=== PATIENT | female | born 1935 | race Caucasian/White ===

== ENCOUNTER 2017-06-16 12:58 | Inpatient (IN) | payer OTHER, MEDICARE ==
[~2017-06-16] VITALS: Ht 167.6 cm; Wt 62.1 kg
[~2017-06-16 12:58] MED LIST: ASPIRIN81 M1 PO; ATORVASTATIN CA10 MG PO; CALCIUM; CALCIUM + D 6001 TAB PO; CELEBREX200 M1 PO; ELIQUIS2.5 M1 PO; FLOVENT HFA10.6 GM PO; GLIPIZIDE ER5 MG PO; HYGROTON 25MG T25 MG PO; JANUMET 1000 MG1 TAB PO; K-DUR 20MEQ TA20 MEQ PO; LOSARTAN POTASS25 MG PO; METHIMAZOLE5 M1 PO; NORCO 5-325 TA1 EACH PO; OMEPRAZOLE D/R20 MG PO; SEA-OMEGA 50 C1 EACH PO; VICODIN5-300 PO; VITAB121000 PO; VITAMIN D1000 IU PO
--- NOTE | 2017-06-16 13:17 | CT SCAN REPORT ---
EXAMINATION: CT HEAD WITHOUT CONTRAST CLINICAL INFORMATION: 81-year-old woman with facial droop. COMPARISON: 10/17/[address] TECHNIQUE: Contiguous axial imaging was performed from the skull base to vertex without intravenous administration of contrast. DLP: 621 mGy-cm FINDINGS: No intracranial mass, hemorrhage, midline shift, or extra-axial collection is appreciated. Moderate chronic microvascular ischemic changes are seen throughout the supratentorial white matter. The ventricles and sulcal spaces are diffusely prominent due to chronic volume loss, although appear stable in overall size and contour. The paranasal sinuses and mastoid air cells are well aerated. IMPRESSION: No acute intracranial pathology.
--- NOTE | 2017-06-16 13:26 | ED AMS/SEIZURE/WEAK/DIZZY ---
See Addendum History of Present Illness General Chief Complaint: Neuro Symptoms/ Deficit Stated Complaint: BIBA ?CVA Source: patient, old records, EMS Exam Limitations: no limitations Vital Signs & Intake/Output Vital Signs & Intake/Output Vital Signs Date Time Temp Pulse Resp B/P B/P Pulse O2 O2 Flow FiO2 Mean Ox Delivery Rate 06/16 1405 74 18 183/103 98 Room Air 06/16 1335 98.4 73 18 180/80 97 Room Air 06/16 1331 Room Air 06/16 1320 99.2 84 16 201/95 97 Room Air Allergies Coded Allergies: cephalexin (From KEFLEX) (HIVES 09/27/15) Reconcile Medications Apixaban (Eliquis) 2.5 MG TABLET 1 TAB PO BID ANTICOAGULATION Atorvastatin Calcium (Lipitor) 10 MG TAB 1 TAB PO DAILY CHOLESTEROL (Reported ) [CALCIUM] 120 MG PROPHO (Reported) Celecoxib (Celebrex) 200 MG CAPSULE 1 CAP PO DAILY INFLAMMATION Cyanocobalamin (Vitamin B-12) 1,000 MCG TAB 1 TAB PO DAILY SUPPLEMENT ( Reported) Fluticasone Propionate (Flovent Hfa) 44 MCG AER.W.ADAP 1 PUFF PO DAILY COPD ( Reported) Hydrocodone/Acetaminophen ([place] 5-325 Tablet) 5 MG-325 MG TABLET 1-2 TAB PO Q4-6H PRN PAIN Losartan Potassium 25 MG TAB 1 TAB PO DAILY BP (Reported) Metformin Hydrochloride/Wilma (Janumet 1000 MG-50 MG) 1 TAB TAB 1 TAB PO BID DIABETES (Reported) Methimazole 5 MG TAB 1 TAB PO AD THYROID (Reported) Omeprazole 20 MG ECC 1 CAP PO DAILY GI (Reported) Core Measure Meds Pre-[facility]ospital [facility] Triage Nurses Notes Reviewed? yes Onset: Just prior to arrival Duration: hour(s):, better, constant, continues in ED Timing: recent history Injury Environment: home Severity: moderate No Modifying Factors: none LMP (ages 10-50): post menopausal : No Patient currently breastfeeds: No HPI: 11 to 11:30 AM patient was noted to have slurred speech confusion dizziness. She denies fever chills nausea vomiting diarrhea abdominal pain chest pain shortness of breath headache dysuria rash bleeding. Past History Travel History Traveled to [place] past 21 day No Medical History Any Pertinent Medical History? 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 No Review of Systems Review of Systems Constitutional: Reports: no symptoms. EENTM: Reports: no symptoms. Respiratory: Reports: no symptoms. Cardiovascular: Reports: no symptoms. GI: Reports: no symptoms. Genitourinary: Reports: no symptoms. Musculoskeletal: Reports: no symptoms. Skin: Reports: no symptoms. Neurological/Psychological: Reports: see HPI, confusion, other (slurred speech). Hematologic/Endocrine: Reports: no symptoms. Immunologic/Allergic: Reports: no symptoms. All Other Systems: Reviewed and Negative Physical Exam Physical Exam General Appearance: well developed/nourished, alert, awake, anxious, mild distress, obese Head: atraumatic, normal appearance Eyes: Bilateral: normal appearance, PERRL, EOMI. Ears, Nose, Throat: normal pharynx, normal ENT inspection Neck: normal inspection, supple, full range of motion Respiratory: chest non-tender, no respiratory distress, quiet respiration, lungs clear, wheezing Cardiovascular: regular rate/rhythm, normal peripheral pulses, norml femoral pulses equa Peripheral Pulses: 4+ carotid (R), 4+ carotid (L) Gastrointestinal: normal bowel sounds, soft, non-tender, no organomegaly Back: normal inspection, normal range of motion, no vertebral tenderness Extremities: normal range of motion, no ligament instability Neurologic/Psych: no motor/sensory deficits, awake, alert, oriented x 3, normal gait, normal mood/affect, facial droop (Left), no gag reflex Reflexes: 2+: bicep (R), bicep (L). Skin: intact, normal color, warm/dry Lymphatic: no anterior cervical amish Core Measures ACS in differential dx? Yes CVA/TIA Diagnosis Yes NIH Stroke Scale (24 Hours) NIH Stroke Scale (24 Hours) Response Value Level of Consciousness alert 0 LOC Questions answers both correctly 0 LOC Commands obeys both correctly 0 Best Gaze normal 0 Visual Catherine no visual loss 0 Facial Paresis minor 1 Motor Arm - Left no drift 0 Motor Arm - Right no drift 0 Motor Leg - Left no drift 0 Motor Leg - Right no drift 0 Limb Ataxia no ataxia 0 Sensory partial loss 1 Best Language no aphasia 0 Dysarthria normal articulation 0 Extinction and Inattention no neglect 0 Total 2 Date Last Known Well 06/16/17 Time Last Known Well 1100 Symptom start date 06/16/17 Symptom start time 1130 Reason tPA not ordered Medical Contraindication (low NIHSS) Swallow Evaluation Fail (no gag reflex) Swallow eval date 06/16/17 Swallow eval time 1300 Sepsis Present: No Sepsis Focused Exam Completed? No Progress Differential Diagnosis: arrythmia, CVA/stroke, drug intoxication, electrolyte imbalance, hypoxia, intracranial Hem., pneumonia Plan of Care: Orders Procedure Date/time Status OXYGEN SETUP (GEN) 06/16 1405 Active Saline Lock 06/16 1405 Active Admit to inpatient 06/16 1405 Active Vital Signs 06/16 1405 Active Activity/Ambulation 06/16 1405 Active Code Status 06/16 1405 Active Patient Data 06/16 1359 Active XRY-PORTABLE CHEST XRAY 06/16 1318 Active TROPONIN LEVEL 06/16 1311 Active PARTIAL THROMBOPLASTIN TIME 06/16 1311 Active PROTHROMBIN TIME 06/16 1311 Active COMPREHENSIVE METABOLIC PANEL 06/16 1311 Active CBC WITHOUT DIFFERENTIAL 06/16 1311 Complete EKG 06/16 1311 Active Laboratory Tests 06/16/17 1405: Anion Gap 14, Estimated GFR > 60, BUN/Creatinine Ratio 18.6, Glucose 114 H, Calcium 9.2, Total Bilirubin 0.6, AST 21, ALT 31, Alkaline Phosphatase 84, Troponin I Pending, Total Protein 7.2, Albumin 4.2, Globulin 3.0, Albumin/ Globulin Ratio 1.4, PT Pending, INR Pending, APTT Pending, CBC w Diff NO MAN DIFF REQ, RBC 4.19 L, MCV 80.4 L, MCH 27.0, RDW 14.8 H, MPV 7.9, Gran % 80.4 H, Lymphocytes % 12.6 L, Monocytes % 5.5, Eosinophils % 1.0, Basophils % 0.5, Absolute Granulocytes 6.2, Absolute Lymphocytes 1.0 L, Absolute Monocytes 0.4, Absolute Eosinophils 0.1, Absolute Basophils 0, PUBS MCHC 33.6 Diagnostic Imaging: Viewed by Me: CT Scan. Discussed w/RAD: CT Scan. Radiology Impression: no acute abnormality Initial ED EKG: normal axis, normal intervals, normal p-waves, normal QRS complex, normal sinus rhythm, no ST T wave changes Departure Departure Disposition: STILL A PATIENT Condition: Stable Clinical Impression Primary Impression: CVA (cerebral vascular accident) Secondary Impressions: Bronchospasm, acute Referrals: Melissa Hardy MD (PCP/Family) Departure Forms: Customer Survey General Discharge Information Admission Note Spoke With: Jocelyn Sidhu MD Documentation of Exam: Documentation of any treatments & extenuating circumstances including Concerns Regarding Discharge (functional status, medication knowledge or non-compliance, living conditions, etc.) that warrant an admission rather than observation: Neurology evaluation MRI carotid studies serial lab exam frequent neurologic checks swallow evaluation medication adjustment continuing care discharge planning Critical Care Note Critical Care Note Critical Care Time: 30-74 min (40)
--- NOTE | 2017-06-16 13:47 | Cons- Neurology ---
General Information and HPI Consulting Request Date of Consult: 06/16/17 Requested By: Dr. Jaffe History of Present Illness: 81-year-old female in her usual state of health until this morning when, after returning from her 's dermatology appointment, she began to complain of dizziness and a feeling of heat over her face bilaterally. Her is not currently at the bedside to support this, however she was reported to be slurring her speech and manifest a facial droop. She was brought urgently to [facility] where a stroke alert was called. Urgent CAT scan of the brain was unrevealing. At the time of my visit with her, she had no essential complaints. She denied any appendicular symptomatology, headache, recent fever or intercurrent medical illness. She is currently maintained on Eliquis. It is unclear as to whether she has a history of atrial fibrillation or whether this was given following her knee surgery Allergies/Medications Allergies: Coded Allergies: cephalexin (From KEFLEX) (HIVES 09/27/15) Home Med List: Apixaban (Eliquis) 2.5 MG TABLET 1 TAB PO BID ANTICOAGULATION Atorvastatin Calcium (Lipitor) 10 MG TAB 1 TAB PO DAILY CHOLESTEROL (Reported ) [CALCIUM] 120 MG PROPHO (Reported) Celecoxib (Celebrex) 200 MG CAPSULE 1 CAP PO DAILY INFLAMMATION Cyanocobalamin (Vitamin B-12) 1,000 MCG TAB 1 TAB PO DAILY SUPPLEMENT ( Reported) Fluticasone Propionate (Flovent Hfa) 44 MCG AER.W.ADAP 1 PUFF PO DAILY COPD ( Reported) Hydrocodone/Acetaminophen ([place] 5-325 Tablet) 5 MG-325 MG TABLET 1-2 TAB PO Q4-6H PRN PAIN Losartan Potassium 25 MG TAB 1 TAB PO DAILY BP (Reported) Metformin Hydrochloride/Wilma (Janumet 1000 MG-50 MG) 1 TAB TAB 1 TAB PO BID DIABETES (Reported) Methimazole 5 MG TAB 1 TAB PO AD THYROID (Reported) Omeprazole 20 MG ECC 1 CAP PO DAILY GI (Reported) Review of Systems Review of Systems: Notable for dizziness and ringing of heat on her face. 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 Head was normocephalic and atraumatic. She was awake, alert and cooperative. Speech was fluent. Pupils were equal and reactive. Extraocular movements were full. There was no nystagmus. There was no field cut. There was a very minor flattening of the left nasolabial fold with a minimal, asymmetric grimace. Sensation was intact. Hearing was grossly normal. Tongue was midline; there was no dysarthria. The motor examination showed no drift of the upper extremities. There was no gross focal or lateralizing weakness. Deep tendon reflexes were symmetric. Plantar responses were flexor. Fine finger movements and rapid alternating movements performed normally. There was no ataxia on [id number] testing. Gait was not evaluated. Assessment/Plan Assessment: Kimmy presents with complaints of dizziness and reported, transient dysarthria. Her examination is only notable for minor facial asymmetry. She is currently maintained on Eliquis. She would not be a candidate for TPA, both by virtue of her current anticoagulation and her low NIH stroke scale. She should be admitted for observation. She may continue on her anticoagulant. The CT scan shows no evidence of bleeding. She should be out of bed initially with assistance. Carotid ultrasound would be advised as well as an MRI of the brain without contrast should her facial asymmetry persist, suggesting a small infarct. Please call with any further questions. Recommendations: As above. Consult Acknowledgment - Thank you for your consult request.
[2017-06-16 14:22] LABS: ABSOLUTE BASOPHIL COUNT 0 /CUMM (0.0-0.2); ABSOLUTE EOSINOPHIL COUNT 0.1 /CUMM (0.0-0.7); ABSOLUTE GRANULOCYTE CT 6.2 /CUMM (1.4-6.5); ABSOLUTE MONOCYTE COUNT 0.4 /CUMM (0.10-0.60); BASOPHIL % 0.5 % (0.0-2.0); GRANULOCYTE % 80.4 % (42.2-75.2); HEMATOCRIT 33.7 % (37-47); MEAN CORPUSCULAR HGB CONC 33.6 G/DL (33.0-37.0); MEAN CORPUSCULAR VOLUME 80.4 FL (81.0-99.0); MEAN PLATELET VOLUME 7.9 FL (7.4-10.4); PLATELET COUNT 342 /CUMM (130-400); RBC DISTRIBUTION WIDTH 14.8 % (11.5-14.5); RED BLOOD CELL CT 4.19 /CUMM (4.20-5.40); WHITE BLOOD CELL COUNT 7.8 /CUMM (4.8-10.8)
[2017-06-16 14:33] LABS: PT 11.7 SEC (9.4-12.5); PTT 32 SEC (25-37)
--- NOTE | 2017-06-16 14:40 | RADIOLOGY REPORT ---
EXAMINATION: XR PORTABLE CHEST CLINICAL INFORMATION: Pneumonia. Wheezing, CVA. COMPARISON: Chest CT dated 02/19/2012. TECHNIQUE: Portable frontal view of the chest was obtained. FINDINGS: The overall appearance of the lungs is unchanged by comparison with the prior study with no definite focal areas of airspace opacification identified at this time. The cardiomediastinal silhouette is not enlarged. There are no pleural effusions. The central pulmonary vasculature is within normal limits. IMPRESSION: No acute cardiopulmonary findings. No significant interval change compared to the prior study of 02/19/2012.
--- NOTE | 2017-06-16 15:25 | History & Physical ---
Kyle CESAR,[facility] 06/16/17 1524: General Information and HPI History of Present Illness: Ms. Hoff is a 81-year-old female with past medical history of hypertension, chronic bronchitis, polio, diabetes mellitus, and pulmonary hypertension who presents with complaints of dizziness and flushing. The patient woke up this morning and felt completely normal. 11:30 AM, she began experiencing dizziness described as room spinning and flushing. Her also noticed that she was having some slurred speech and a facial droop. They took her blood sugar and it was 91. She thought this was low and had some candy but there was no change. She then went to her primary care doctor, Dr. Jamshid prince, who took her blood pressure and found that it was markedly elevated. The primary care doctor was concerned for stroke and center in for further evaluation. On arrival to the emergency room, the nurse notes that she saw a mild facial droop that has since resolved. The patient at this time does not have any complaints. She does note she had a recent upper respiratory infection and positive sick contacts. She denies any vision changes, chest pain, shortness of breath, bowel pain, dysuria, numbness, tingling, weakness, or other issues. The patient does note that she had knee surgery in February and was prescribed apixiban afterwards. This was stopped in March and she is no longer on apixiban. She denies any history of atrial fibrillation or blood clots. 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 EENTM: Reports: no symptoms. Cardiovascular: Reports: no symptoms. Respiratory: Reports: no symptoms. GI: Reports: no symptoms. Genitourinary: Reports: no symptoms. Musculoskeletal: Reports: no symptoms. Skin: Reports: no symptoms. Neurological/Psychological: Reports: see HPI. Hematologic/Endocrine: Reports: no symptoms. Immunologic/Allergic: Reports: no symptoms. All Other Systems: Reviewed and Negative Exam & Diagnostic Data Last 24 Hrs of Vital Signs/I&O Vital Signs Date Time Temp Pulse Resp B/P B/P Pulse O2 O2 Flow FiO2 Mean Ox Delivery Rate 06/16 1657 98.3 86 19 214/93 96 Room Air 06/16 1544 98.0 91 15 206/91 97 Room Air 06/16 1448 97.8 84 18 162/78 98 06/16 1405 74 18 183/103 98 Room Air 06/16 1335 98.4 73 18 180/80 97 Room Air 06/16 1331 Room Air 06/16 1320 99.2 84 16 201/95 97 Room Air Intake & Output 06/16 1600 06/16 0800 06/16 0000 Intake Total Output Total Balance Patient 1677 lb Weight Weight Reported by Patient Measurement Method Physical Exam General Appearance Alert, Oriented X3, Cooperative, No Acute Distress Skin No Rashes HEENT Atraumatic, PERRLA, EOMI Cardiovascular Regular Rate, Normal S1, Normal S2 Lungs Clear to Auscultation Abdomen Normal Bowel Sounds, Soft, No Tenderness Neurological positive romberg, unsteady gait. CN II-XII normal. Strength 5/5 in all extremities. Sensation intact Extremities No Edema, Normal Pulses, No Tenderness/Swelling Last 24 Hrs of Labs/David: Laboratory Tests 06/16/17 1405: Anion Gap 14, Estimated GFR > 60, BUN/Creatinine Ratio 18.6, Glucose 114 H, Calcium 9.2, Total Bilirubin 0.6, AST 21, ALT 31, Alkaline Phosphatase 84, Troponin I < 0.01, Total Protein 7.2, Albumin 4.2, Globulin 3.0, Albumin/ Globulin Ratio 1.4, PT 11.7, INR 1.12, APTT 32, CBC w Diff NO MAN DIFF REQ, RBC 4.19 L, MCV 80.4 L, MCH 27.0, RDW 14.8 H, MPV 7.9, Gran % 80.4 H, Lymphocytes % 12.6 L, Monocytes % 5.5, Eosinophils % 1.0, Basophils % 0.5, Absolute Granulocytes 6.2, Absolute Lymphocytes 1.0 L, Absolute Monocytes 0.4, Absolute Eosinophils 0.1, Absolute Basophils 0, PUBS MCHC 33.6 Assessment/Plan Assessment: Ms. Hoff is a 81-year-old female with past medical history of hypertension, chronic bronchitis, polio, diabetes mellitus, hyperthyroidism, and pulmonary hypertension who presents with complaints of dizziness and flushing. On presentation, he a signs were T 99.2, HR 84, RR 16, BP 201/95, saturating 97% on room air. Blood pressure improved to 183/103. Laboratories worsening can for white blood cell count 7.8, hemoglobin 11.3, MCV 80.4, normal BEP, negative LFTs , troponin less than 0.01, INR 1.12. Head CT and chest x-ray negative for any acute processes. She will admitted to telemetry and treated for following problems: 1. Transient ischemic attack 2. Hypertensive urgency #Transient ischemic attack: Patient presented with history of neurological deficits that was confirmed by nurses and physicians here. However they have since resolved. Neurology already evaluated her and think this is likely a transient ischemic attack. She did not meet criteria for TPA administration because her NIH stroke scale was 1. -Neurochecks -Aspirin daily -Appreciate neurology recommendations -Carotid artery ultrasound -MRI brain -Permissive hypertension -Fasting lipid panel #Hypertensive urgency: Patient had a blood pressure 201/95. We do want permissive hypertension but less than 220 systolic. -2.5 mg amlodipine 1 -Continue home blood pressure medications #Chronic medical problems: -Continue home medications DVT prophylaxis with enoxaparin Heart healthy diet Full code As Ranked By This Provider Problem List: 1. TIA (transient ischemic attack) Core Measures/Misc (02/08) Acute Coronary Syndrome ACS Diagnosis: No Congestive Heart Failure Congestive Heart Failure Diagnosis No Cerebrovascular Accident CVA/TIA Diagnosis: Yes Date Last Known Well: 06/16/17 Time Last Known Well: 1100 Symptom Start Date: 06/16/17 Symptom Start Time: 1130 Reason tPA not ordered Medical Contraindication Swallow Evaluation Pass (no gag reflex) VTE (View Protocol) VTE Risk Factors Age>40 No Mechanical VTE Prophylaxis d/t N/A MechProphylax Ordered No VTE Pharm Prophylaxis d/t NA PharmProphylax ordered Sepsis (View protocol) Sepsis Present: No Jennifer Moore 06/16/17 5233: General Information and HPI Allergies/Medications Home Med list Atorvastatin Calcium (Lipitor) 10 MG TAB 1 TAB PO DAILY CHOLESTEROL (Reported ) [CALCIUM] 120 MG PROPHO (Reported) Cyanocobalamin (Vitamin B-12) 1,000 MCG TAB 1 TAB PO DAILY SUPPLEMENT ( Reported) Fluticasone Propionate (Flovent Hfa) 44 MCG AER.W.ADAP 1 PUFF PO DAILY COPD ( Reported) Glipizide 5 MG TABLET 1 TAB PO DAILY sugar (Reported) Losartan Potassium 25 MG TAB 1 TAB PO DAILY BP (Reported) Metformin Hydrochloride/Wilma (Janumet 1000 MG-50 MG) 1 TAB TAB 1 TAB PO BID DIABETES (Reported) Methimazole 5 MG TABLET 1 TAB PO DAILY Thyroid (Reported) except THURSDAY Omeprazole 20 MG ECC 1 CAP PO DAILY GI (Reported) Resident Review Statement Resident Statement: examined this patient, discussed with resident intern, agreed with resident intern, reviewed images, amended to note Other Findings: 81-year-old lady with past malaise hypertension, chronic bronchitis polio long time ago, diabetes, pulmonary hypertension came to the hospital with chief complaint of dizziness. Patient on an episode of dizziness room is spinning around her and also noticed slurred speech and facial droop. Sugar was 91. Patient saw her PCP,who discovered that her blood pressure is highly elevated.therefore she was advised to come to the emergency room .patient had recent URI but does not have any shortness of breath, chest pain, dysuria, numbness, tingling, weakness in any other places . Physical exam notable for positive Romberg test and inability to walk due to dizziness (complete details above) Heart S1-S2 normal Lung bilaterally clear Abdomen soft and nontender EKG showed normal sinus rhythm, nosignificant ST-T changes Chest x-ray and head CT no acute findings Labs are notable for hemoglobin 11.3, troponin negative, BEP unremarkable Assessment History of hypertension TIA History of hyperthyroidism History of diabetes History of hyperlipidemia History of GERD Plan Admit to telemetry Aspirin high dose 1 time an 81 mg daily Carotid ultrasound, echocardiogram, MRI of the head vitals signs every 6 for blood pressure Neurochecks Q3 lipid panel In the morning Stop metformin and put the patient on sliding scale insulin and finger checks Increase his statin to 80 mg daily Permissive hypertension to 220 mmhg , low dose amlodipine 2.5 once Continue losartan tomorrow if BP remain highly elevated Neurology recommendation appreciated DVT prophylaxis mechanical and an excellent fine, Tylenol for pain, diabetic diet,full code Mccann,[place]ep 06/16/17 1642: Attending MD Review Statement Attending Statement Attending MD Statement: examined this patient, discuss w/resident/PA/[employer], agreed w/resident/PA/[employer], discussed with family, reviewed EMR data (avail) Attending Assessment/Plan: 81 yr old female with pmf of DM on oral meds with diabetic peripheral neuropathy , HTN, HLD , 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 Pt was doing alright till 1130 am today and started having dizziness as the main complaint alongwith some slurry speech and possible facial droop . In PCP office she was found to have high BP. TIA- currently her symptoms have resolved. Pt not on eliquis currently and was taking Aspirin 81mg every other day. Head ct not showing any acute infarct or bleeding. Monitor on tele, give full dose aspirin and will check fasting lipid profile. Workup as per neuro recommendations. d/w pt and pts family at bedside the care plan.
[2017-06-16] MEDS ORDERED: GLIPIZIDE5 M2 PO (16:22)
[2017-06-17 06:09] LABS: ABSOLUTE BASOPHIL COUNT 0 /CUMM (0.0-0.2); ABSOLUTE EOSINOPHIL COUNT 0.2 /CUMM (0.0-0.7); ABSOLUTE GRANULOCYTE CT 4.5 /CUMM (1.4-6.5); ABSOLUTE LYMPH COUNT 1.4 /CUMM (1.2-3.4); ABSOLUTE MONOCYTE COUNT 0.5 /CUMM (0.10-0.60); BASOPHIL % 0.1 % (0.0-2.0); EOSINOPHIL % 2.8 % (0-5); GRANULOCYTE % 68.4 % (42.2-75.2); HEMATOCRIT 33.5 % (37-47); MEAN CORPUSCULAR HGB 27.3 PG (27.0-31.0); MEAN CORPUSCULAR HGB CONC 33.6 G/DL (33.0-37.0); MEAN CORPUSCULAR VOLUME 81.1 FL (81.0-99.0); MEAN PLATELET VOLUME 7.5 FL (7.4-10.4); PLATELET COUNT 323 /CUMM (130-400); RBC DISTRIBUTION WIDTH 14.7 % (11.5-14.5); RED BLOOD CELL CT 4.13 /CUMM (4.20-5.40); WHITE BLOOD CELL COUNT 6.6 /CUMM (4.8-10.8)
--- NOTE | 2017-06-17 08:03 | ULTRASOUND REPORT ---
EXAMINATION: DUPLEX BILATERAL CAROTID ULTRASOUND CLINICAL INFORMATION: TIA COMPARISON: None. TECHNIQUE: Duplex bilateral carotid US was performed using real-time ultrasound and Doppler techniques (integrating B-mode 2D vascular images, Doppler spectral analysis and color flow Doppler imaging). These techniques were utilized to interrogate the extracranial carotid and vertebral arteries bilaterally. The degree of stenosis is based off criteria similar to NASCET. FINDINGS: 1. On the right: Plaque is present at the carotid bifurcation but velocity measurements are normal and do not suggest a stenosis of greater than 50% diameter reduction in the right ICA. The right ECA demonstrates a mild stenosis with peak systolic velocity of under 200 cm/s. The vertebral artery is patent demonstrating antegrade flow. 2. On the left: Plaque is present at the carotid bifurcation but velocity measurements are normal and do not suggest a stenosis of greater than 50% diameter reduction in the left ICA. The left ECA demonstrates a mild stenosis with peak systolic velocity of under 200 cm/s. The vertebral artery is patent demonstrating antegrade flow. IMPRESSION: Plaque is present in the internal carotid arteries but velocity measurements are normal and there is no evidence to suggest a hemodynamically significant stenosis of greater than 50% diameter reduction.
--- NOTE | 2017-06-17 08:14 | PN- Housestaff ---
See Addendum Subjective Follow-up For: TIA Subjective: No overnight events. She feels good this morning, no complaints. Ready to go home today. Review of Systems Constitutional: Reports: no symptoms. EENTM: Reports: no symptoms. Cardiovascular: Reports: no symptoms. Respiratory: Reports: no symptoms. Gastrointestinal: Reports: no symptoms. Genitourinary: Reports: no symptoms. Musculoskeletal: Reports: no symptoms. Skin: Reports: no symptoms. Neurological/Psychological: Reports: no symptoms. Hematologic/Endocrine: Reports: no symptoms. Immunologic/Allergic: Reports: no symptoms. Objective Last 24 Hrs of Vital Signs/I&O Vital Signs Date Time Temp Pulse Resp B/P B/P Pulse O2 O2 Flow FiO2 Mean Ox Delivery Rate 06/17 0605 98.2 73 20 175/78 95 Room Air 06/17 0447 97.8 78 22 160/82 96 06/16 2031 98.7 80 18 176/86 96 Nasal Cannula 06/16 1839 99.0 84 18 188/88 96 Room Air 06/16 1729 78 15 191/84 94 Room Air 06/16 1657 98.3 86 19 214/93 96 Room Air 06/16 1544 98.0 91 15 206/91 97 Room Air 06/16 1448 97.8 84 18 162/78 98 06/16 1405 74 18 183/103 98 Room Air 06/16 1335 98.4 73 18 180/80 97 Room Air 06/16 1331 Room Air 06/16 1320 99.2 84 16 201/95 97 Room Air Intake & Output 06/17 1600 06/17 0800 06/17 0000 Intake Total 120 Output Total Balance 120 Intake, Oral 120 Physical Exam General Appearance: Alert, Oriented X3, Cooperative, No Acute Distress Cardiovascular: Regular Rate, Normal S1, Normal S2 Lungs: Clear to Auscultation Abdomen: Normal Bowel Sounds, Soft, No Tenderness Extremities: No Edema Current Medications: Current Medications Sig/Annita Start time Last Medication Dose Route Stop Time Status Admin Acetaminophen 650 MG Q6P PRN 06/16 1730 AC PO Amlodipine Besylate 2.5 MG ONCE ONE 06/16 1715 DC 06/16 PO 06/16 1716 1735 Aspirin 81 MG DAILY 06/17 1000 AC PO Aspirin 0 .STK-MED ONE 06/16 1735 DC PO Aspirin 325 MG ONCE ONE 06/16 1630 DC 06/16 PO 06/16 1631 1735 Aspirin 300 MG ONCE ONE 06/16 1415 CAN IL 06/16 1416 Atorvastatin Calcium 80 MG 1700 06/16 1700 AC 06/16 PO 1735 Enoxaparin Sodium 40 MG DAILY 06/17 1000 AC SC Insulin Aspart 0 TIDAC 06/16 1700 AC SC Losartan Potassium 25 MG DAILY 06/17 1000 CAN PO Methimazole 5 MG DAILY 06/17 1000 AC PO Omeprazole 20 MG DAILY 06/17 1000 AC PO Last 24 Hrs of Lab/David Results Last 24 Hrs of Labs/Mics: Laboratory Tests 06/17/17 0600: Anion Gap 11, Estimated GFR > 60, BUN/Creatinine Ratio 22.9, Triglycerides 61, Cholesterol 132, LDL Cholesterol, Calc 52 L, HDL Cholesterol 68 H, Cholesterol /HDL Ratio 2, CBC w Diff NO MAN DIFF REQ, RBC 4.13 L, MCV 81.1, MCH 27.3, RDW 14.7 H, MPV 7.5, Gran % 68.4, Lymphocytes % 21.5, Monocytes % 7.2, Eosinophils % 2.8, Basophils % 0.1, Absolute Granulocytes 4.5, Absolute Lymphocytes 1.4, Absolute Monocytes 0.5, Absolute Eosinophils 0.2, Absolute Basophils 0, PUBS MCHC 33.6 06/16/17 1405: Anion Gap 14, Estimated GFR > 60, BUN/Creatinine Ratio 18.6, Glucose 114 H, Calcium 9.2, Total Bilirubin 0.6, AST 21, ALT 31, Alkaline Phosphatase 84, Troponin I < 0.01, Total Protein 7.2, Albumin 4.2, Globulin 3.0, Albumin/ Globulin Ratio 1.4, TSH < 0.015 L, Free T4 1.28, PT 11.7, INR 1.12, APTT 32, CBC w Diff NO MAN DIFF REQ, RBC 4.19 L, MCV 80.4 L, MCH 27.0, RDW 14.8 H, MPV 7.9, Gran % 80.4 H, Lymphocytes % 12.6 L, Monocytes % 5.5, Eosinophils % 1.0, Basophils % 0.5, Absolute Granulocytes 6.2, Absolute Lymphocytes 1.0 L, Absolute Monocytes 0.4, Absolute Eosinophils 0.1, Absolute Basophils 0, PUBS MCHC 33.6 Assessment/Plan Assessment: Ms. Hoff is a 81-year-old female with past medical history of hypertension, chronic bronchitis, polio, diabetes mellitus, hyperthyroidism, and pulmonary hypertension who presents with complaints of dizziness and flushing. Problem List: 1. Transient ischemic attack 2. Hypertensive urgency #Transient ischemic attack: Patient presented with history of neurological deficits that was confirmed by nurses and physicians here. However they have since resolved. Neurology already evaluated her and think this is likely a transient ischemic attack. She did not meet criteria for TPA administration because her NIH stroke scale was 1. She continues to do well overnight. Carotid ultrasound showed no hemodynamically significant stenosis. Lipid panel shows excellent LDL and HDL. -Neurochecks -Aspirin daily -Appreciate neurology recommendations -Carotid artery ultrasound -Permissive hypertension -TTE with bubble study #Hypertensive urgency: Patient had a blood pressure 201/95. We do want permissive hypertension but less than 220 systolic. -Continue home blood pressure medications #Chronic medical problems: -Continue home medications DVT prophylaxis with enoxaparin Heart healthy diet Full code Problem List: 1. TIA (transient ischemic attack) Pain Ratin Pain Location: none Pain Goal: Remain pain free Pain Plan: see a/p Tomorrow's Labs & Rationales: none
--- NOTE | 2017-06-17 09:13 | ECHOCARDIOGRAM REPORT ---
KEAGAN DODSON Age: 81 : 1935 Gender: F Exam Date: 06/16/2017 19:28 Exam Location: ER Ht (in): 65 Wt (lb): 167 BSA: 1.88 BP: 188 / 88 Ordering Physician: Jennifer Moore MD Referring Physician: Luis E Del Castillo MD Technologist: Chayo Arita [facility] Room Number: ED#10 Indications: TIA Rhythm: Sinus Technical Quality: Fair FINDINGS Left Ventricle Normal global left ventricular size, wall thickness, systolic function with no obvious regional wall motion abnormalities. Normal left ventricular ejection fraction estimated at 55-60%. Abnormal relaxation filling pattern of the left ventricle for age (stage 1 diastolic dysfunction). Right Ventricle Right ventricle not well visualized, grossly normal. Right Atrium Normal right atrial size. Left Atrium Mild left atrial dilatation. Mitral Valve Mitral valve thickened. Mitral annular calcification. Trace to mild mitral regurgitation. Aortic Valve Trileaflet aortic valve. Diffuse thickening of the aortic valve cusps with reduced excursion. Mild aortic stenosis. Trace to mild aortic regurgitation. Tricuspid Valve Tricuspid valve not well visualized, grossly normal. Trace to mild tricuspid regurgitation. Right ventricular systolic pressure estimated at 24 mmHg. Pulmonic Valve Pulmonic valve not well visualized, grossly normal. Pericardium No pericardial effusion. Great Vessels Aortic root and proximal ascending aorta not well visualized, grossly normal. CONCLUSIONS 1. 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 2. Mitral leaflet thickening is present with mild to moderate anular calcification and minimal to mild mitral insufficiency with mild left atrial enlargement. 3. There is no pericardial fluid present. 4. The left ventricular chamber size and systolic function appear normal . 5. Minimal to mild tricuspid insufficiency is present with no evidence of pulmonary hypertension. 6. Lipomatous atrial septal hypertrophy is present. 7. There are no embolic sources identified on this study. If clinically indicated, a IAN might better exclude potential embolic sources. Luis E Del Castillo M.D. (Electronically Signed) Final Date: 17 June 2017 09:12 MEASUREMENTS (Male / Female) Normal Values 2D ECHO LV Diastolic Diameter PLAX 4.4 cm 4.2 - 5.9 / 3.9 - 5.3 cm LV Systolic Diameter PLAX 2.0 cm 2.1 - 4.0 cm LV Fractional Shortening PLAX 54.5 % 25 - 46 % LV Ejection Fraction 2D Teich 85.5 % IVS Diastolic Thickness 1.2 cm LVPW Diastolic Thickness 1.1 cm LV Relative Wall Thickness 0.5 RV Internal Dim ED PLAX 2.7 cm 1.9 - 3.8 cm LVOT Diameter 2.0 cm Aortic Root Diameter 2.9 cm LA Systolic Diameter LX 3.2 cm 3.0 - 4.0 / 2.7 - 3.8 cm LA Volume 35.0 cm 18 - 58 / 22 - 52 cm Ascending Aorta Diameter 3.2 cm DOPPLER AV Peak Velocity 201.0 cm/s AV Peak Gradient 16.2 mmHg AV Mean Velocity 140.0 cm/s AV Mean Gradient 9.0 mmHg AV Velocity Time Integral 41.7 cm LVOT Peak Velocity 117.0 cm/s LVOT Peak Gradient 5.5 mmHg LVOT Mean Velocity 83.2 cm/s LVOT Mean Gradient 3.0 mmHg LVOT Velocity Time Integral 29.7 cm LVOT Stroke Volume 93.3 cm AV Area Cont Eq vti 2.2 cm AV Area Cont Eq pk 1.8 cm MV Peak Velocity 131.0 cm/s MV Peak Gradient 6.9 mmHg MV Mean Velocity 75.1 cm/s MV Mean Gradient 3.0 mmHg Mitral E Point Velocity 84.9 cm/s Mitral A Point Velocity 116.0 cm/s Mitral E to A Ratio 0.7 MV PHT Velocity 97.0 cm/s MV Deceleration Norton 286.0 cm/s MV Pressure Half Time 101.7 ms MV Area PHT 2.2 cm MV Deceleration Time 195.0 ms TR Peak Velocity 270.0 cm/s TR Peak Gradient 29.2 mmHg Right Atrial Pressure 5.0 mmHg Pulmonary Artery Systolic Pressu 34.2 mmHg Right Ventricular Systolic Press 34.2 mmHg PV Peak Velocity 116.0 cm/s PV Peak Gradient 5.4 mmHg PV Mean Velocity 77.4 cm/s PV Mean Gradient 3.0 mmHg PV Velocity Time Integral 24.8 cm LV E' Lateral Velocity 10.2 cm/s Mitral E to LV E' Lateral Ratio 8.3 LV E' Septal Velocity 5.7 cm/s Mitral E to LV E' Septal Ratio 14.9
--- NOTE | 2017-06-17 13:42 | Cons- Cardiology ---
General Information and HPI Consulting Request Date of Consult: 06/17/17 Requested By: Lawrence Woodall MD Reason for Consult: TIA Source of Information: patient, family Exam Limitations: no limitations History of Present Illness: The patient is a very nice 81-year-old female who is well-known to me. Her prospectus resume of hypertension, pulmonary issues, diabetes, pulmonary hypertension. The patient is admitted to the hospital after waking up on the morning of admission with dizziness, some speech slurring, and reported facial drooping. At that time her blood sugar was 91. She went to see her primary care physician. At that time she was noted to be hypertensive and she was sent to the emergency room for further evaluation of possible stroke. Today, the patient is feeling well. She denies any persistent symptoms. She denied any other cardiovascular symptoms. Of note, the patient's carotid ultrasound in the hospital showed mild bilateral plaque. Her echo cardiac exam showed no significant evidence of embolic sources. The patient did have knee surgery in February and was transiently on anticoagulation postoperatively but is not anticoagulated at the moment. Allergies/Medications Allergies: Coded Allergies: cephalexin (From KEFLEX) (HIVES 09/27/15) Home Med List: Atorvastatin Calcium (Lipitor) 10 MG TAB 1 TAB PO DAILY CHOLESTEROL (Reported ) [CALCIUM] 120 MG PROPHO (Reported) Cyanocobalamin (Vitamin B-12) 1,000 MCG TAB 1 TAB PO DAILY SUPPLEMENT ( Reported) Fluticasone Propionate (Flovent Hfa) 44 MCG AER.W.ADAP 1 PUFF PO DAILY COPD ( Reported) Glipizide 5 MG TABLET 1 TAB PO DAILY sugar (Reported) Losartan Potassium 25 MG TAB 1 TAB PO DAILY BP (Reported) Metformin Hydrochloride/Wilma (Janumet 1000 MG-50 MG) 1 TAB TAB 1 TAB PO BID DIABETES (Reported) Methimazole 5 MG TABLET 1 TAB PO DAILY Thyroid (Reported) except THURSDAY Omeprazole 20 MG ECC 1 CAP PO DAILY GI (Reported) Current Medications: Current Medications Sig/Annita Start time Last Medication Dose Route Stop Time Status Admin Acetaminophen 650 MG Q6P PRN 06/16 1730 AC PO Amlodipine Besylate 2.5 MG ONCE ONE 06/16 1715 DC 06/16 PO 06/16 1716 1735 Aspirin 81 MG DAILY 06/17 1000 AC 06/17 PO 0931 Aspirin 0 .STK-MED ONE 06/16 1735 DC PO Aspirin 325 MG ONCE ONE 06/16 1630 DC 06/16 PO 06/16 1631 1735 Aspirin 300 MG ONCE ONE 06/16 1415 CAN [place] 06/16 1416 Atorvastatin Calcium 10 MG 1700 06/17 1700 AC PO Atorvastatin Calcium 80 MG 1700 06/16 1700 DC 06/16 PO 1735 Enoxaparin Sodium 40 MG DAILY 06/17 1000 AC 06/17 SC 0931 Insulin Aspart 0 TIDAC 06/16 1700 AC 06/17 SC 0931 Losartan Potassium 25 MG DAILY 06/17 1000 CAN PO Losartan Potassium 25 MG DAILY 06/17 1000 AC 06/17 PO 1103 Methimazole 5 MG DAILY 06/17 1000 AC 06/17 PO 0931 Omeprazole 20 MG DAILY 06/17 1000 AC 06/17 PO 0931 Past History Travel History Traveled to [place] past 21 day No Medical History Neurological: NONE EENT: NONE Cardiovascular: hypertension Respiratory: CHRONIC BRONCHITIS Gastrointestinal: NONE Hepatic: NONE Renal: NONE Musculoskeletal: POLIO Psychiatric: NONE Endocrine: diabetes Blood Disorders: NONE Cancer(s): 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 Surgical History Surgical History: non-contributory Psychosocial History Services at Home: None ETOH Use: occasional use Illicit Drug Use: denies illicit drug use Exam & Diagnostic Data Vital Signs and I&O Vital Signs Date Time Temp Pulse Resp B/P B/P Pulse O2 O2 Flow FiO2 Mean Ox Delivery Rate 06/17 1103 83 161/71 06/17 1102 83 15 161/71 97 Room Air Room Air 06/17 0918 98.5 65 15 158/69 98 Room Air Room Air 06/17 0605 98.2 73 20 175/78 95 Room Air 06/17 0447 97.8 78 22 160/82 96 06/16 2031 98.7 80 18 176/86 96 Nasal Cannula 06/16 1839 99.0 84 18 188/88 96 Room Air 06/16 1729 78 15 191/84 94 Room Air 06/16 1657 98.3 86 19 214/93 96 Room Air 06/16 1544 98.0 91 15 206/91 97 Room Air 06/16 1448 97.8 84 18 162/78 98 06/16 1405 74 18 183/103 98 Room Air Intake & Output 06/17 1600 06/17 0800 06/17 0000 06/16 1600 06/16 0800 06/16 0000 Intake Total 120 Output Total Balance 120 Intake, Oral 120 Patient 1677 lb Weight Weight Reported by Patient Measurement Method Physical Exam: General Appearance Alert, Oriented X3, Cooperative, No Acute Distress Skin normal HEENT Atraumatic, PERRLA, EOMI Cardiovascular Regular Rate, Normal S1, Normal S2, 1/6 systolic murmur left sternal border Lungs Clear to Auscultationand percussion bilaterally Abdomen Normal Bowel Sounds, Soft, No Tenderness Neurological noted Extremities No Edema, Normal Pulses, No Tenderness/Swelling Labs/David Results: Laboratory Tests 06/17 06/16 0600 1405 Chemistry Sodium (137 - 145 mmol/L) 142 141 Potassium (3.5 - 5.1 mmol/L) 3.9 4.4 Chloride (98 - 107 mmol/L) 104 103 Carbon Dioxide (22 - 30 mmol/L) 28 23 Anion Gap (5 - 16) 11 14 BUN (7 - 17 mg/dL) 16 13 Creatinine (0.5 - 1.0 mg/dL) 0.7 0.7 Estimated GFR (>60 ml/min) > 60 > 60 BUN/Creatinine Ratio (7 - 25 %) 22.9 18.6 Glucose (65 - 99 mg/dL) 114 H Calcium (8.4 - 10.2 mg/dL) 9.2 Total Bilirubin (0.2 - 1.3 mg/dL) 0.6 AST (14 - 36 U/L) 21 ALT (9 - 52 U/L) 31 Alkaline Phosphatase (<127 U/L) 84 Troponin I (< 0.11 ng/ml) < 0.01 Total Protein (6.3 - 8.2 g/dL) 7.2 Albumin (3.5 - 5.0 g/dL) 4.2 Globulin (1.9 - 4.2 gm/dL) 3.0 Albumin/Globulin Ratio (1.1 - 2.2 %) 1.4 Triglycerides (<150 mg/dL) 61 Cholesterol (<200 MG/DL) 132 LDL Cholesterol, Calc (65 - 129 mg/dL) 52 L HDL Cholesterol (40 - 60 mg/dL) 68 H Cholesterol/HDL Ratio (0.00 - 4.23 %) 2 TSH (0.270 - 4.200 uIU/mL) < 0.015 L Free T4 (0.78 - 2.44 ng/dL) 1.28 Coagulation PT (9.4 - 12.5 SEC) 11.7 INR (0.90 - 1.19) 1.12 APTT (25 - 37 SEC) 32 Hematology CBC w Diff NO MAN DIFF REQ NO MAN DIFF REQ WBC (4.8 - 10.8 /CUMM) 6.6 7.8 RBC (4.20 - 5.40 /CUMM) 4.13 L 4.19 L Hgb (12.0 - 16.0 G/DL) 11.3 L 11.3 L Hct (37 - 47 %) 33.5 L 33.7 L MCV (81.0 - 99.0 FL) 81.1 80.4 L MCH (27.0 - 31.0 PG) 27.3 27.0 RDW (11.5 - 14.5 %) 14.7 H 14.8 H Plt Count (130 - 400 /CUMM) 323 342 MPV (7.4 - 10.4 FL) 7.5 7.9 Gran % (42.2 - 75.2 %) 68.4 80.4 H Lymphocytes % (20.5 - 51.1 %) 21.5 12.6 L Monocytes % (1.7 - 9.3 %) 7.2 5.5 Eosinophils % (0 - 5 %) 2.8 1.0 Basophils % (0.0 - 2.0 %) 0.1 0.5 Absolute Granulocytes (1.4 - 6.5 /CUMM) 4.5 6.2 Absolute Lymphocytes (1.2 - 3.4 /CUMM) 1.4 1.0 L Absolute Monocytes (0.10 - 0.60 /CUMM) 0.5 0.4 Absolute Eosinophils (0.0 - 0.7 /CUMM) 0.2 0.1 Absolute Basophils (0.0 - 0.2 /CUMM) 0 0 PUBS MCHC (33.0 - 37.0 G/DL) 33.6 33.6 Diagnostic Data EKG Results Sinus rhythm, unchanged from previously CXR Results FINDINGS: The overall appearance of the lungs is unchanged by comparison with the prior study with no definite focal areas of airspace opacification identified at this time. The cardiomediastinal silhouette is not enlarged. There are no pleural effusions. The central pulmonary vasculature is within normal limits. IMPRESSION: No acute cardiopulmonary findings. No significant interval change compared to the prior study of 02/19/2012. Assessment/Plan Assessment/Plan Assessment: 1. Probable TIA 2. History of hypertension 3. History of diabetes 4. History of hyper-lipidemia 5. History of reflux disease 6. History of hyperthyroidism with low TSH 7. Mild anemia Recommendations: -At the moment, the patient appears to be stable -Echocardiogram reviewed and shows no significant embolic sources. -From the point of view of further cardiac workup, if embolic source identification is desired by neurology, I would pursue a transesophageal echocardiogram rather than a transthoracic echo with bubble study. The patient' s transthoracic images are suboptimal and a IAN would better exclude atrial level shunt, intracavitary mass or thrombus, atheromatous aortic disease, etc. -Continue current management and medications -Await further recommendations from neurology Consult Acknowledgment - Thank you for your consult request.
--- NOTE | 2017-06-17 13:53 | Patient Discharge Instructions ---
Discharge Instructions General Discharge Information You were seen/treated for: Transient ischemic attack Watch for these problems: Fever, chest pain, shortness of breath, weakness Special Instructions: Please take all medications as directed. Please follow-up with primary care. Please follow-up with cardiology for a loop recorder. Diet Continue normal diet: Yes Activity Full Activity/No Limits: Yes Acute Coronary Syndrome Inclusion Criteria At DC or during hospital stay patient has or had the following: ACS DIAGNOSIS No Discharge Core Measures Meds if any: Prescribed or Continued at Discharge Meds if any: NOT Prescribed or Continued at Discharge Congestive Heart Failure Inclusion Criteria At DC or during hospital stay patient has or had the following: CHF DIAGNOSIS No Discharge Core Measures Meds if any: Prescribed or Continued at Discharge Meds if any: NOT Prescribed or Continued at Discharge Cerebrovascular accident Inclusion Criteria At DC or during hospital stay patient has or had the following: CVA/TIA Diagnosis Yes Discharge Core Measures Meds if any: Prescribed or Continued at Discharge Antithrombotic No Statin (required if LDL =>70) Yes Anticoagulant No Meds if any: NOT Prescribed or Continued at Discharge Venous thromboembolism Inclusion Criteria VTE Diagnosis No VTE Type NONE VTE Confirmed by (Test) NONE Discharge Core Measures - Per Current guidelines, there needs to be overlap - treatment for the first 5 days of Warfarin therapy. - If discharged on Warfarin prior to 5 days of - overlap therapy, the patient will need to be - assessed for post discharge needs including - *Post discharge parental anticoagulation - *Warfarin and/or parental anticoagulation education - *Follow up date to check INR post discharge At least 5 days overlap therapy as Inpatient No Meds if any: Prescribed or Continued at Discharge Note: Overlap Therapy is Warfarin and Anticoagulant Meds if any: NOT Prescribed or Continued at Discharge
--- NOTE | 2017-06-17 17:59 | Admission Certification ---
Admission Certification Certification Statement - As attending physician, I certify that at the time of - admission, based on clinical presentation, severity of - symptoms, need for further diagnostic testing and - therapeutic interventions, and risk of adverse outcomes - without in-hospital treatment, in my clinical assessment, - this patient requires an acute hospital stay for a minimum - of two nights or longer. I have also considered psychsocial - factors such as support system, advanced age, financial - issues, cognitive issues, and failed out-patient treatments, - past re-admission history, safety of patient, and lack of - compliance as applicable. Specific rationale supporting this admission is: stroke
[2017-06-17 19:28] VITALS: BP 158/66
--- NOTE | 2017-06-18 07:23 | PN- Housestaff ---
See Addendum Subjective Follow-up For: TIA Tele-Events Since Last Visit: SR, 70-90 Subjective: No overnight events. Nurse informs me that the patient was crying this morning, complaining about the gowns. When I evaluated her, she was not crying, just complaining of a cough. She is orientedx3. No CP, SOB, weakness, or or issues. Review of Systems Constitutional: Reports: no symptoms. EENTM: Reports: no symptoms. Cardiovascular: Reports: no symptoms. Respiratory: Reports: no symptoms. Gastrointestinal: Reports: no symptoms. Genitourinary: Reports: no symptoms. Musculoskeletal: Reports: no symptoms. Skin: Reports: no symptoms. Neurological/Psychological: Reports: no symptoms. Hematologic/Endocrine: Reports: no symptoms. Immunologic/Allergic: Reports: no symptoms. Objective Last 24 Hrs of Vital Signs/I&O Vital Signs Date Time Temp Pulse Resp B/P B/P Pulse O2 O2 Flow FiO2 Mean Ox Delivery Rate 06/17 1930 95 Room Air 06/17 1928 98.7 88 18 158/66 97 Room Air 06/17 1652 99.3 82 18 165/70 98 06/17 1103 83 161/71 06/17 1102 83 15 161/71 97 Room Air Room Air 06/17 0918 98.5 65 15 158/69 98 Room Air Room Air Intake & Output 06/18 0800 06/18 0000 06/17 1600 Intake Total 200 610 Output Total Balance 200 610 Intake, IV 20 Intake, Oral 200 590 Number 0 Bowel Movements Patient 62.142 kg Weight Physical Exam General Appearance: Alert, Oriented X3, Cooperative, No Acute Distress Cardiovascular: Regular Rate, Normal S1, Normal S2 Lungs: crackles Abdomen: Normal Bowel Sounds, Soft, No Tenderness Neurological: Normal Speech, Strength at 5/5 X4 Ext, mild facial asymmetry Extremities: No Edema, Normal Pulses, No Tenderness/Swelling Current Medications: Current Medications Sig/Annita Start time Last Medication Dose Route Stop Time Status Admin Acetaminophen 650 MG Q6P PRN 06/16 1730 AC PO Aspirin 81 MG DAILY 06/17 1000 AC 06/17 PO 0931 Atorvastatin Calcium 10 MG 1700 06/17 1700 AC 06/17 PO 1720 Atorvastatin Calcium 80 MG 1700 06/16 1700 DC 06/16 PO 1735 Docusate Sodium 100 MG DAILY PRN 06/17 2014 AC PO Enoxaparin Sodium 40 MG DAILY 06/17 1000 AC 06/17 SC 0931 Guaifenesin/ 10 ML Q6P PRN 06/17 2014 AC 06/17 Dextromethorphan PO 2054 Insulin Aspart 0 TIDAC 06/16 1700 AC 06/17 SC 0931 Losartan Potassium 25 MG DAILY 06/17 1000 AC 06/17 PO 1103 Methimazole 5 MG DAILY 06/17 1000 AC 06/17 PO 0931 Omeprazole 20 MG DAILY 06/17 1000 AC 06/17 PO 0931 Assessment/Plan Assessment: Ms. Hoff is a 81-year-old female with past medical history of hypertension, chronic bronchitis, polio, diabetes mellitus, hyperthyroidism, and pulmonary hypertension who presents with complaints of dizziness and flushing. Problem List: 1. Transient ischemic attack 2. Hypertensive urgency #Transient ischemic attack: Patient presented with history of neurological deficits that was confirmed by nurses and physicians here. However they have since resolved. Neurology already evaluated her and think this is likely a transient ischemic attack. She did not meet criteria for TPA administration because her NIH stroke scale was 1. Carotid ultrasound showed no hemodynamically significant stenosis. Lipid panel shows excellent LDL and HDL. TTE shows EF 55- 60% with stage I diastolic dysfunction. Physical therapy evaluated her yesterday and thought that she was unsteady on her feet. They will reevaluate her today to see if she is stable for discharge home. Additionally, the patient seems to have some mild facial droop that is persistent and unsteady gait. We will get an MRI to evaluate for stroke. If she did have a stroke, she will need further evaluation with IAN and loop recorder for source of embolus. -Neurochecks -Aspirin daily -Appreciate neurology recommendations -Follow up PT recommendations -MRI brain without contrast #Hypertensive urgency: Blood pressure in the 150/160 systolic. -Continue home blood pressure medications #Chronic medical problems: -Continue home medications DVT prophylaxis with enoxaparin Heart healthy diet Full code Problem List: 1. TIA (transient ischemic attack) Pain Ratin Pain Location: no Pain Goal: Remain pain free Pain Plan: see a/p Tomorrow's Labs & Rationales: none
[2017-06-18 08:59] VITALS: BP 158/66
--- NOTE | 2017-06-18 11:27 | MRI REPORT ---
EXAMINATION: MR BRAIN WITHOUT CONTRAST CLINICAL INFORMATION: Left facial droop and unsteady gait. Assess for CVA. COMPARISON: CT scan of the head 06/16/2017. TECHNIQUE: MRI of the brain without contrast was obtained using routine sequences. FINDINGS: No diffusion abnormalities are identified to suggest an acute or subacute infarct. No mass effect or midline shift is seen. The ventricles and sulci are commensurately prominent consistent with [id number] diffuse volume loss. There are multiple small scattered foci of T2 and FLAIR hyperintensity in the periventricular and subcortical white matter, consistent with chronic microvascular ischemic changes. No extra-axial fluid collections are seen. The brainstem and cerebellum are normal. No pathologic magnetic susceptibility artifact is identified on the gradient refocused acquisition. The craniovertebral junction, marrow signal, and midline structures are normal. There have been bilateral lens extractions. There is an empty sella. There is hyperostosis frontalis interna. The major intracranial flow-voids at the level of the [place] of [place] are preserved. The dural venous sinus flow-voids are maintained. There is mild fluid signal in the left mastoid air cells. The right mastoid air cells and the visualized paranasal sinuses are well-aerated. IMPRESSION: 1. There are no acute bleeds or infarcts. 2. There is moderate diffuse volume loss and there are sequelae of chronic microvascular ischemic disease.
--- NOTE | 2017-06-18 12:13 | PN- Cardiology ---
Subjective Subjective: Feeling well. No further neurologic symptoms. No chest pain. No palpitations. No diaphoresis. No shortness of breath. Objective Vital Signs and I&Os Vital Signs Date Time Temp Pulse Resp B/P B/P Pulse O2 O2 Flow FiO2 Mean Ox Delivery Rate 06/18 0859 88 158/66 06/17 1930 95 Room Air 06/17 1928 98.7 88 18 158/66 97 Room Air 06/17 1652 99.3 82 18 165/70 98 Intake & Output 06/18 1600 06/18 0806/18 0000 06/17 1600 06/17 0806/17 0000 Intake Total 200 610 120 Output Total Balance 200 610 120 Intake, IV 20 Intake, Oral 200 590 120 Number 0 Bowel Movements Patient 137 lb Weight Physical Exam: General Appearance Alert, Oriented X3, Cooperative, No Acute Distress Skin normal HEENT Atraumatic, PERRLA, EOMI Cardiovascular Regular Rate, Normal S1, Normal S2, 1/6 systolic murmur left sternal border Lungs Clear to Auscultationand percussion bilaterally Abdomen Normal Bowel Sounds, Soft, No Tenderness Neurological noted Extremities No Edema, Normal Pulses, No Tenderness/Swelling Current Medications: Current Medications Sig/Annita Start time Last Medication Dose Route Stop Time Status Admin Acetaminophen 650 MG Q6P PRN 06/16 1730 AC PO Aspirin 81 MG DAILY 06/17 1000 AC 06/18 PO 0859 Atorvastatin Calcium 10 MG 1700 06/17 1700 AC 06/17 PO 1720 Docusate Sodium 100 MG DAILY PRN 06/17 2014 AC PO Enoxaparin Sodium 40 MG DAILY 06/17 1000 AC 06/18 SC 0858 Guaifenesin/ 10 ML Q6P PRN 06/17 2014 AC 06/18 Dextromethorphan PO 0858 Insulin Aspart 0 TIDAC 06/16 1700 AC 06/17 SC 0931 Losartan Potassium 25 MG DAILY 06/17 1000 AC 06/18 PO 0859 Methimazole 5 MG DAILY 06/17 1000 AC 06/18 PO 0859 Omeprazole 20 MG DAILY 06/17 1000 AC 06/17 PO 0931 Results Last 48 Hrs of Labs/Mics: Laboratory Tests 06/17/17 0600: Anion Gap 11, Estimated GFR > 60, BUN/Creatinine Ratio 22.9, Triglycerides 61, Cholesterol 132, LDL Cholesterol, Calc 52 L, HDL Cholesterol 68 H, Cholesterol /HDL Ratio 2, CBC w Diff NO MAN DIFF REQ, RBC 4.13 L, MCV 81.1, MCH 27.3, RDW 14.7 H, MPV 7.5, Gran % 68.4, Lymphocytes % 21.5, Monocytes % 7.2, Eosinophils % 2.8, Basophils % 0.1, Absolute Granulocytes 4.5, Absolute Lymphocytes 1.4, Absolute Monocytes 0.5, Absolute Eosinophils 0.2, Absolute Basophils 0, PUBS MCHC 33.6 06/16/17 1405: Anion Gap 14, Estimated GFR > 60, BUN/Creatinine Ratio 18.6, Glucose 114 H, Calcium 9.2, Total Bilirubin 0.6, AST 21, ALT 31, Alkaline Phosphatase 84, Troponin I < 0.01, Total Protein 7.2, Albumin 4.2, Globulin 3.0, Albumin/ Globulin Ratio 1.4, TSH < 0.015 L, Free T4 1.28, PT 11.7, INR 1.12, APTT 32, CBC w Diff NO MAN DIFF REQ, RBC 4.19 L, MCV 80.4 L, MCH 27.0, RDW 14.8 H, MPV 7.9, Gran % 80.4 H, Lymphocytes % 12.6 L, Monocytes % 5.5, Eosinophils % 1.0, Basophils % 0.5, Absolute Granulocytes 6.2, Absolute Lymphocytes 1.0 L, Absolute Monocytes 0.4, Absolute Eosinophils 0.1, Absolute Basophils 0, PUBS MCHC 33.6 Assessment/Plan Assessment/Plan Assessment: 1. Probable TIA 2. History of hypertension 3. History of diabetes 4. History of hyperlipidemia 5. History of reflux disease 6. History of hyperthyroidism with low TSH 7. Mild anemia Recommendations: * Continue aspirin * Continue statin * Will follow neurology recommendations regarding whether IAN is indicated. Continue telemetry? Yes
[2017-06-18] MEDS ORDERED: ASPIRIN81 M4 PO (12:45)
--- NOTE | 2017-06-18 12:45 | Discharge Summary ---
See Addendum Visit Information Visit Dates Admission Date: 06/16/17 Discharge Date: 06/18/17 Hospital Course Course Attending Physician: Lawrence Woodall MD Primary Care Physician: Antony CESAR,[facility] Course: Ms. Hoff is a 81-year-old female with past medical history of hypertension, chronic bronchitis, polio, diabetes mellitus, hyperthyroidism, and pulmonary hypertension who presented with complaints of dizziness and flushing. On presentation, vital were T 99.2, HR 84, RR 16, BP 201/95, saturating 97% on room air. Blood pressure improved to 183/103. Laboratories worsening can for white blood cell count 7.8, hemoglobin 11.3, MCV 80.4, normal BEP, negative LFTs , troponin less than 0.01, INR 1.12. Head CT and chest x-ray negative for any acute processes. She was admitted to telemetry and treated for following problems: 1. Transient ischemic attack 2. Hypertensive urgency #Transient ischemic attack: Patient presented with history of neurological deficits that were confirmed by nurses and physicians here. However, they have since resolved. Neurology evaluated her and think this is likely a transient ischemic attack. She did not meet criteria for TPA administration because her NIH stroke scale was 1. Carotid ultrasound showed no hemodynamically significant stenosis. Lipid panel shows excellent LDL and HDL. TTE without bubble study showed EF 55-60% with stage I diastolic dysfunction. Physical therapy evaluated her and thought that she was unsteady on her feet. They reevaluated her and cleared her for discharge home with services. MRI head was performed to rule out stroke and did not show any acute infarcts. She will need a loop recorder and should follow up with cardiology for this. She was also started on aspirin daily. #Hypertensive urgency: Her blood pressure was elevated on admission. Blood pressure was monitored and controlled with medication and she is being discharged on her home blood pressure medications. She can follow-up with primary care for further monitoring of her blood pressure. #Chronic medical problems: Her home medications were continued. Allergies: Coded Allergies: cephalexin (From KEFLEX) (HIVES 09/27/15) Disposition Summary Disposition Principal Diagnosis: 1. Transient ischemic attack Additional Diagnosis: 2. Hypertensive urgency Discharge Disposition: home health services Discharge Instructions General Discharge Information Code Status: Full Code Patient's Diet: Heart healthy diet Patient's Activity: As tolerated Follow-Up Instructions/Appts: Please take all medications as directed. Please follow-up with primary care. Please follow-up with cardiology for loop recorder. Medications at Discharge Discharge Medications: Continue taking these medications: Metformin Hydrochloride/Wilma (Janumet 1000 MG-50 MG) 1 TAB TAB 1 Tablet ORAL TWICE DAILY Qty = 60 Comments: PER PT Atorvastatin Calcium (Lipitor) 10 MG TAB 1 Tablet ORAL DAILY Qty = 90 Comments: PER PT Cyanocobalamin (Vitamin B-12) 1,000 MCG TAB 1 Tablet ORAL DAILY Comments: PER PT Methimazole (Methimazole) 5 MG TABLET 1 Tablet ORAL DAILY Instructions: except THURSDAY Comments: Last Taken: 06/18/17 Time: 9:00 AM Omeprazole (Omeprazole) 20 MG ECC 1 Capsule ORAL DAILY Qty = 30 Comments: PER PT Losartan Potassium (Losartan Potassium) 25 MG TAB 1 Tablet ORAL DAILY Qty = 30 Comments: PER PT [CALCIUM] 120 MG DAILY Comments: NOT GIVEN IN HOSPITAL Fluticasone Propionate (Flovent Hfa) 44 MCG AER.W.ADAP 1 PUFF ORAL DAILY Comments: NOT GIVEN IN HOSPITAL Glipizide (Glipizide) 5 MG TABLET 1 Tablet ORAL DAILY Comments: NOT GIVEN IN HOSPITAL Start taking the following new medications: Aspirin (Aspirin*) 81 MG TAB.CHEW 81 Milligram ORAL DAILY Qty = 30 No Refills Comments: Last Taken: 06/18/17 Time: 9:00 AM Copies To: Lamin CESAR,Jose Landry; Antony CESAR,Melissa; Magdalene CESAR,Jean Paul Barker Attending MD Review Statement Documenting Attending: Ramy CESAR,Shankar Landry Other Findings: The patient was seen by me on the day of discharge (followed by Dr. Mccann). OK to discharge today. MRI of brain w/o acute infarct. She will need OP PCP, Neurology, & Cardiology follow-up. Needs prison youth nutritional monitor as OP.
== END 2017-06-18 17:15 | disposition home health service (06) | DRG 69 ==
LOC: ERH 12:58 → ERHI 14:05 → 1NO 14:05 → ERH 14:10 → ENRESERV 06-17 16:44 → 1NO 06-17 19:19 → ENPENDDIS 06-18 12:46 → 1NO 06-18 17:15
PROVIDERS: Emergency Medicine; Internal Medicine
DX: G45.9 Transient cerebral ischemic attack, unspecified (principal); E11.42 Type 2 diabetes mellitus with diabetic polyneuropathy; I27.29 Other secondary pulmonary hypertension; E05.90 Thyrotoxicosis, unspecified without thyrotoxic crisis or storm; D64.9 Anemia, unspecified; I16.0 Hypertensive urgency; I10 Essential (primary) hypertension; Z86.12 Personal history of poliomyelitis; Z79.84 Long term (current) use of oral hypoglycemic drugs; J42 Unspecified chronic bronchitis; R29.810 Facial weakness; R47.81 Slurred speech; Z79.01 Long term (current) use of anticoagulants
CPT/HCPCS: 1NSP; 70551; ERO; 71045; 82436; 93005; 93010; 93306; 97110-GO; 97116-GO; 97161-GP; J1650; J3490

== ENCOUNTER 2017-07-19 18:04 | Emergency (ER) | payer OTHER, MEDICARE ==
[~2017-07-19 18:04] MED LIST changes: +ASPIRIN81 M4 PO; +GLIPIZIDE5 M2 PO
--- NOTE | 2017-07-19 18:14 | ED MVC/FALL/TRAUMA COMPLAINT ---
History of Present Illness General Chief Complaint: Fall Stated Complaint: S/P TRIP AND FALL, HIT BACK OF HEAD Source: patient Exam Limitations: no limitations Vital Signs & Intake/Output Vital Signs & Intake/Output see nursing note Allergies Coded Allergies: cephalexin (From KEFLEX) (HIVES 09/27/15) Reconcile Medications Aspirin (Aspirin*) 81 MG TAB.CHEW 81 MG PO DAILY Heart Health Atorvastatin Calcium (Lipitor) 10 MG TAB 1 TAB PO DAILY CHOLESTEROL (Reported ) [CALCIUM] 120 MG PROPHO (Reported) Cyanocobalamin (Vitamin B-12) 1,000 MCG TAB 1 TAB PO DAILY SUPPLEMENT ( Reported) Fluticasone Propionate (Flovent Hfa) 44 MCG AER.W.ADAP 1 PUFF PO DAILY COPD ( Reported) Glipizide 5 MG TABLET 1 TAB PO DAILY sugar (Reported) Losartan Potassium 25 MG TAB 1 TAB PO DAILY BP (Reported) Metformin Hydrochloride/Wilma (Janumet 1000 MG-50 MG) 1 TAB TAB 1 TAB PO BID DIABETES (Reported) Methimazole 5 MG TABLET 1 TAB PO DAILY Thyroid (Reported) except THURSDAY Omeprazole 20 MG ECC 1 CAP PO DAILY GI (Reported) Triage Note: RECEIVED 82 YO FEMALE IVANA FROM HOME S/P TRIP AND FALL. PT HIT THE BACK OF HER HEAD ON FLOOR. PT DENIES LOC, BLEEDING OR HEADACHE. PT [id number] DIZZINESS/LIGHTHEADEDNESS PRIOR TO FALL. PT TIA W WEEKS AGO. PT DENIES CP/SOB OR BLURRED VISION. Triage Nurses Notes Reviewed? yes Onset: Just prior to arrival Duration: hour(s): (1) Timing: no prior history Severity: mild Severity Numbers: 4 Injuries/Fall Location: head Method of Injury: direct blow, fall Loss of Consciousness: no loss of consciousness No Modifying Factors: none HPI: Patient is an 82-year-old female presenting to the emergency department with chief complaint of chipping and following prior to arrival. She reports that she got up to go the bathroom and her shoe got caught in the carpet. She fell backwards hitting her head. Denies loss of consciousness. Denies visual changes or headaches. No neck pain or back pain. Denies any upper or lower extremity pain. No urinary incontinence or retention. Denies any symptoms prior to the fall. She was never lightheaded or dizzy. No chest pain palpitations or shortness of breath. She was able to get up with help of her . They decided to come in for evaluation due to the bump she noticed on the back of her head. (Ching Baumann) Past History Travel History Traveled to [place] past 21 day No Medical History Any Pertinent Medical History? see below for history Neurological: NONE EENT: NONE Cardiovascular: hypertension Respiratory: CHRONIC BRONCHITIS Gastrointestinal: NONE Hepatic: NONE Renal: NONE Musculoskeletal: POLIO Psychiatric: NONE Endocrine: diabetes Blood Disorders: NONE Cancer(s): NONE LINE PATROLMAN/Reproductive: NONE History of MRSA: No History of VRE: No History of CDIFF: No Influenza Vaccine: 02/06/17 Surgical History Surgical History: non-contributory Psychosocial History Who do you live with Spouse Services at Home None What is your primary language Albanian Tobacco Use: Never used Family History Hx Contributory? No (Ching Baumann) Review of Systems Review of Systems Constitutional: Reports: no symptoms. Comments Review of systems: See HPI, All other systems negative. Constitutional, no chills fever or weight loss HEENT: No visual changes no sore throat no congestion Cardiovascular: No chest pain ,palpitation Skin, no jaundice no rashes Respiratory: No dyspnea cough sputum or hemoptysis GI: No nausea no vomiting : No dysuria No hematuria Muscle skeletal: no back pain, no neck pain, Neurologic: No numbness no confusion, no headaches Psych: No stress anxiety or depression,. Heme/endocrine: No bruising no bleeding no polyuria or polydipsia Immunology: No splenectomy or history of AIDS (Ching Baumann) Physical Exam Physical Exam General Appearance: well developed/nourished, no apparent distress, alert, awake , comfortable Comments: Well-developed well-nourished person in no acute distress HEENT: extraocular motion intact, no nystagmus. Pupils equally round and reactive to light and accommodation. Nose is atraumatic. External auditory canal and Tympanic membranes clear. Pharynx normal. No swelling or edema. Small 2 cm hematoma on the posterior aspect of the scalp, no bogginess or step off deformities palpated over entire scalp. No hemotympanum noted bilaterally. Neck: Supple, no lymphadenopathy, normal range of motion without pain or tenderness, no cervical spine tenderness. Back: Nontender Cardiovascular: Regular rate and rhythms no murmurs rubs or gallops, normal JVP Respiratory: Chest nontender. No respiratory distress.breath sounds clear to auscultation bilaterally Abdomen: Soft, nontender nondistended, no appreciable organomegaly. Extremity: No edema, no calf tenderness to palpation, normal and equal pulses. Full range of motion of upper and lower extremities without difficulty or pain. Travel Professional strength is equal and symmetric bilaterally. Muscular strength is 5 out of 5 all seated on the stretcher in the upper and lower extremities. Neuro: Alert oriented x3, motor sensory normal, cranial nerves II through XII grossly intact. Patellar reflexes are 2+ bilaterally. Walks with steady gait. Skin: No appreciable rash on exposed skin, skin is warm and dry. Psych: Mood and affect is normal, memory and judgment is normal. Core Measures ACS in differential dx? No CVA/TIA Diagnosis No Sepsis Present: No Sepsis Focused Exam Completed? No (Polo ROSALES,Ching) Progress Differential Diagnosis: intracranial hemorrhage, minor head injury, contusion, postconcussive syndrome, skull fracture Plan of Care: Orders Procedure Date/time Status CT HEAD WO IV CONTRAST 07/[address] CERV SPINE WO IV CONTRAST 07/19 1813 Active d/w dr lerner and he agrees with plan. Diagnostic Imaging: Viewed by Me: CT Scan. Discussed w/RAD: CT Scan. Radiology Impression: PATIENT: KEAGAN DODSON PRESENT AGE: 82 PATIENT ACCOUNT NO: [id number] : 37 LOCATION: [facility] ORDERING PHYSICIAN: Ching ROSALES SERVICE DATE: 07/19/17-1813 EXAM TYPE: CAT - CT CERV SPINE WO IV CONTRAST; CT HEAD WO IV CONTRAST EXAMINATIONS: CT HEAD WITHOUT CONTRAST AND CT CERVICAL SPINE WITHOUT CONTRAST CLINICAL INFORMATION: Status post fall, head strike COMPARISON: MRI head 06/18/2017, CT head 2017 TECHNIQUE: Contiguous helical images of the brain were obtained without IV contrast. Contiguous helical images of the cervical spine were obtained without IV contrast. Multiplanar reconstructions were performed. DLP: 148 mGy-cm FINDINGS: There are no pathologic extra-axial fluid collections. The lateral, third, fourth ventricles and sulci are mildly dilated but concordant. There is no evidence for acute intraparenchymal hemorrhage or infarct. There is neither mass nor mass effect. There is no shift of midline structures. The paranasal sinuses and mastoid air cells are clear. There are no osseous lesions. Small soft tissue swelling overlying the right posterior parietal bone. There is no prevertebral soft tissue swelling. Multilevel degenerative changes are evident. There is mild narrowing of the intervertebral disc space at the C2 chest 3 level with endplate changes. There is relative preservation of the C3-C4 interspace. There is slight narrowing of the C4-C5 interspace. This there is retrolisthesis at this level measuring approximately 0.3 cm. There is mild loss of the normal intervertebral disc space in addition to prominent anterior osteophytes present at the C5-C6 and C6-C7 levels. No acute fracture demonstrated. Normal thyroid gland. Mild centrilobular emphysematous changes. Mild biapical pleural parenchymal thickening. Otherwise, the visualized lung apices are clear. IMPRESSION: 1. No acute intracranial hemorrhage. Mild to moderate cerebral atrophy. 2. Small ecchymosis involving the subcutaneous tissues overlying the right posterior parietal bone. 3. No prevertebral soft tissue swelling. However, there is retrolisthesis present at the C4-C5 level. Unfortunately, there are no previous studies available for comparison. The finding is considered to most likely represent the sequelae of degenerative changes which are present diffusely throughout the cervical spine. If there is concern, however, for an acute injury involving the mid cervical spine consider MRI for further characterization. (Ching Baumann) Departure Departure Time of Disposition: 1939 Disposition: HOME OR SELF CARE Condition: Stable Clinical Impression Primary Impression: Minor head injury Qualifiers: Encounter type: initial encounter Qualified Code: S00.90XA - Unspecified superficial injury of unspecified part of head, initial encounter Referrals: Melissa Hardy MD (PCP/Family) Additional Instructions: Follow-up with your primary care physician in the next 5-7 days, call to make an appointment. Ice affected area. Take [id number] Tylenol as directed to help with any aches or pains. Return if he develop any worsening headaches, vision changes, confusion vomiting or concerns. Departure Forms: Customer Survey General Discharge Information (Ching Baumann) PA/SIX SIGMA BLACK TRAINER Co-Sign Statement Statement: ED Attending supervision documentation- [X] I saw and evaluated the patient. I have also reviewed all the pertinent lab results and diagnostic results. I agree with the findings and the plan of care as documented in the PA's/SIX SIGMA BLACK TRAINER's documentation. [X] I have reviewed the ED Record and agree with the PA's/SIX SIGMA BLACK TRAINER's documentation. [] Additions or exceptions (if any) to the PAs/SIX SIGMA BLACK TRAINER's note and plan are summarized below: [] (Daniel CESAR,Danny Duarte)
[2017-07-19 18:15] VITALS: BP 128/91
--- NOTE | 2017-07-19 19:34 | CT SCAN REPORT ---
EXAMINATIONS: CT HEAD WITHOUT CONTRAST AND CT CERVICAL SPINE WITHOUT CONTRAST CLINICAL INFORMATION: Status post fall, head strike COMPARISON: MRI head 06/18/2017, CT head 06/16/2017 TECHNIQUE: Contiguous helical images of the brain were obtained without IV contrast. Contiguous helical images of the cervical spine were obtained without IV contrast. Multiplanar reconstructions were performed. DLP: 148 mGy-cm FINDINGS: There are no pathologic extra-axial fluid collections. The lateral, third, fourth ventricles and sulci are mildly dilated but concordant. There is no evidence for acute intraparenchymal hemorrhage or infarct. There is neither mass nor mass effect. There is no shift of midline structures. The paranasal sinuses and mastoid air cells are clear. There are no osseous lesions. Small soft tissue swelling overlying the right posterior parietal bone. There is no prevertebral soft tissue swelling. Multilevel degenerative changes are evident. There is mild narrowing of the intervertebral disc space at the C2 chest 3 level with endplate changes. There is relative preservation of the C3-C4 interspace. There is slight narrowing of the C4-C5 interspace. This there is retrolisthesis at this level measuring approximately 0.3 cm. There is mild loss of the normal intervertebral disc space in addition to prominent anterior osteophytes present at the C5-C6 and C6-C7 levels. No acute fracture demonstrated. Normal thyroid gland. Mild centrilobular emphysematous changes. Mild biapical pleural parenchymal thickening. Otherwise, the visualized lung apices are clear. IMPRESSION: 1. No acute intracranial hemorrhage. Mild to moderate cerebral atrophy. 2. Small ecchymosis involving the subcutaneous tissues overlying the right posterior parietal bone. 3. No prevertebral soft tissue swelling. However, there is retrolisthesis present at the C4-C5 level. Unfortunately, there are no previous studies available for comparison. The finding is considered to most likely represent the sequelae of degenerative changes which are present diffusely throughout the cervical spine. If there is concern, however, for an acute injury involving the mid cervical spine consider MRI for further characterization.
== END 2017-07-19 19:41 ==
LOC: ERH 18:04
DX: S09.90XA Unspecified injury of head, initial encounter (principal); W18.09XA Striking against other object with subsequent fall, initial encounter; Y93.01 Activity, walking, marching and hiking; Y92.9 Unspecified place or not applicable

== ENCOUNTER 2017-09-26 08:01 | Emergency (ER) | payer OTHER, MEDICARE ==
[~2017-09-26] VITALS: Ht 167.6 cm; Wt 73.5 kg
[2017-09-26] MEDS ORDERED: OMEPRAZOLE20 M2 PO (08:18)
[2017-09-26] MEDS ORDERED: JANUMET 50-1,01 EACH PO (08:18)
[2017-09-26] MEDS ORDERED: COZAAR25 M1 PO (08:19)
[2017-09-26] MEDS ORDERED: ATORVASTATIN CA10 M1 PO (08:19)
[2017-09-26] MEDS ORDERED: B-121000 MC3 PO (08:20)
[2017-09-26] MEDS ORDERED: VITAMIN D31000 UNI1 PO (08:21)
--- NOTE | 2017-09-26 09:02 | ED NECK/BACK PAIN COMPLAINT ---
History of Present Illness General Chief Complaint: Low Back Pain/Injury Stated Complaint: LOWER BACK PAIN Source: patient, family, old records Exam Limitations: no limitations Vital Signs & Intake/Output Vital Signs & Intake/Output Vital Signs Date Time Temp Pulse Resp B/P B/P Pulse O2 O2 Flow FiO2 Mean Ox Delivery Rate 09/26 0815 97.3 106 22 173/84 97 Room Air Allergies Coded Allergies: oxycodone (Intermediate, VOMITING 09/26/17) cephalexin (From KEFLEX) (HIVES 09/27/15) Reconcile Medications Aspirin (Aspirin*) 81 MG TAB.CHEW 81 MG PO DAILY [facility] Atorvastatin Calcium 10 MG TABLET 1 TAB PO DAILY HYPERCHOLESTEREMIA (Reported ) [CALCIUM] 120 MG PROPHO (Reported) Cholecalciferol (Vitamin D3) (Vitamin D3) 1,000 UNIT CAPSULE 1 CAP PO DAILY VITAMIN SUPP (Reported) Cyanocobalamin (Vitamin B-12) (B-12) 1,000 MCG TABLET 1 TAB PO DAILY SUPPLIMENT (Reported) Fluticasone Propionate (Flovent Hfa) 44 MCG AER.W.ADAP 1 PUFF PO DAILY COPD ( Reported) Glipizide 5 MG TABLET 1 TAB PO DAILY sugar (Reported) Losartan Potassium (Cozaar) 25 MG TABLET 1 TAB PO DAILY HTN (Reported) Methimazole 5 MG TABLET 1 TAB PO DAILY Thyroid (Reported) except THURSDAY Omeprazole 20 MG CAPSULE. 1 CAP PO DAILY GERD (Reported) Sitagliptin Phos/Metformin HCl (Janumet 50-1,000 MG Tablet) 50 MG-1,000 MG TABLET 1 TAB PO BID DIABETES (Reported) Triage Note: 82F FELL IN JUN, HAS BEEN SEEN BY DR FELDER. WOKE UP THIS AM WITH SEVERE LUMBOSACRAL PAIN RADIATING DOWN BOTH LEGS, UNSURE OF TERMINAL POINT DUE TO NEUROPATHY. DENIES LOSS OF B/B. RECEIVED STEROID SHOTS INTO SPINE ABOUT A WEEK AGO AND PAIN IS NOW WORSENING. REPORTS LATERAL RIGHT THIGH NUMBNESS. TOOK TRAMADOL 50MG THIS MORNING WITH NO RELIEF Triage Nurses Notes Reviewed? yes Onset: Last week Duration: day(s):, constant, continues in ED, getting worse Timing: recent history Quality/Severity: severe, radiation, sharpness Location: lumbar spine Radiation: upper legs, lower legs Context: fall/near fall Method of Injury: fall Loss of Consciousness: no loss of consciousness Modifying Factors: immobilization, movement, pain medication Associated Symptoms: lower back pain, numbness in legs/feet LMP (ages 10-50): post menopausal : No Patient currently breastfeeds: No HPI: 3 months prior to admission patient fell in the kitchen found to have L2 compression fracture and spinal stenosis. She has been followed by orthopedics. She reports having intra-articular injections last week with worsening lower midline sharp constant back pain radiating to buttocks and lower legs worse with ambulation and bending there is associated numbness right leg greater than left. She denies fever chills nausea vomiting diarrhea abdominal pain chest pain shortness breath headache dysuria rash bleeding change in bowel bladder habit. Past History Travel History Traveled to [place] past 21 day No Medical History Any Pertinent Medical History? 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 No Review of Systems Review of Systems Constitutional: Reports: no symptoms. Eyes: Reports: no symptoms. Ears, Nose, Throat, Mouth: Reports: no symptoms. Respiratory: Reports: no symptoms. Cardiovascular: Reports: no symptoms. Gastrointestinal/Abdominal: Reports: no symptoms. Musculoskeletal: Reports: see HPI, back pain, muscle stiffness. Skin: Reports: no symptoms. Neurological/Psychological: Reports: see HPI, numbness, paresthesia. All Other Systems: Reviewed and Negative Physical Exam Physical Exam General Appearance: well developed/nourished, alert, awake, anxious, moderate distress Head: atraumatic, normal appearance Eyes: Bilateral: normal appearance, PERRL, EOMI, normal inspection. Ears, Nose, Throat, Mouth: hearing grossly normal, moist mucous membrane Neck: normal inspection, supple, full range of motion, normal alignment Respiratory: normal breath sounds, chest non-tender, no respiratory distress, quiet respiration, lungs clear Cardiovascular: regular rate/rhythm Peripheral Pulses: 4+ carotid (R), 4+ carotid (L) Gastrointestinal: normal bowel sounds, soft, non-tender, no organomegaly Back: normal inspection, vertebral tenderness, decreased range of motion Extremities: normal range of motion Straight Leg Raising: Right: Pain at ____ degrees (5). Left: Pain at ____ degrees (5). Sensory: Medial Le: L4R, L4L. Top of Foot: 1: L5R, L5L. Sole of Foot: 1: SIR, ZAHEER. Motor: Deficit L4 Right: No Deficit L4 Left: No Deficit L5 Right: No Deficit L5 Left: No Deficit S1 Right: No Deficit S1 Right: No DTR: Deficit L4 Left: No Deficit L4 Right: No Deficit S1 Left: No Deficit S1 Right: No Patellar: 3: L4 Right, L4 Left. Neurologic/Psych: no motor/sensory deficits, awake, alert, oriented x 3, normal mood/affect, litigation examiner II-XII nml as tested Skin: intact, normal color, warm/dry Core Measures CVA/TIA Diagnosis: No Progress Differential Diagnosis: herniated disc, sciatica, spinal cord inj Plan of Care: Orders Procedure Date/time Status Regular Diet 09/26 L Complete Regular Diet 09/26 D Active MAGNESIUM 09/26 08 Complete COMPREHENSIVE METABOLIC PANEL 09/26 850 Complete CBC WITHOUT DIFFERENTIAL 09/26 850 Complete Laboratory Tests 09/26/17 1000: Anion Gap 12, Estimated GFR > 60, BUN/Creatinine Ratio 18.6, Glucose 130 H, Calcium 9.2, Magnesium 1.3 L, Total Bilirubin 0.7, AST 12 L, ALT 17, Alkaline Phosphatase 75, Total Protein 6.6, Albumin 3.7, Globulin 2.9, Albumin/Globulin Ratio 1.3, CBC w Diff MAN DIFF ORDERED, RBC 4.28, MCV 82.3, MCH 26.6 L, MCHC 32.3 L, RDW 16.0 H, MPV 7.0 L, Gran % 83.3 H, Lymphocytes % 10.5 L, Monocytes % 5.4, Eosinophils % 0.2, Basophils % 0.6, Absolute Granulocytes 10.1 H, Absolute Lymphocytes 1.3, Absolute Monocytes 0.7 H, Absolute Eosinophils 0, Absolute Basophils 0.1, Platelet Estimate ADEQUATE, Normocytic RBCs VERIFIED, Normochromic RBCs VERIFIED Radiology Impression: There has been substantial worsening of the compression fracture of the L2 vertebral body with now 80% vertebral body height loss centrally which represents a substantial progression from 40% height loss on the previous examination from 08/26/2017. There is also worsening retropulsion of the posterior cortex causing AP narrowing of the canal and at least moderate stenosis at the mid body L2 level. Evaluation of the canal and canal contents are however suboptimally assessed on this examination due to inherent limitations of CT without intrathecal contrast. Comments: Ambulates with walker after interventions without difficulty. Departure Departure Time of Disposition: 1234 Disposition: HOME OR SELF CARE Condition: Stable Clinical Impression Primary Impression: Lumbar compression fracture Secondary Impressions: Spinal stenosis of lumbar region Referrals: Antony CESRA,Melissa (PCP/Family) Eric Felder MD Departure Forms: Customer Survey General Discharge Information Prescriptions: Current Visit Scripts Ibuprofen 1 TAB PO Q6P PRN pain #60 TAB Tramadol HCl (Ultram) 1 TAB PO Q6P PRN severe pain #30 TAB Baclofen 1 TAB PO TIDPRN PRN muscle spasm/strain #30 TAB
[2017-09-26 10:09] LABS: ABSOLUTE BASOPHIL COUNT 0.1 /CUMM (0.0-0.2); ABSOLUTE EOSINOPHIL COUNT 0 /CUMM (0.0-0.7); ABSOLUTE GRANULOCYTE CT 10.1 /CUMM (1.4-6.5); ABSOLUTE LYMPH COUNT 1.3 /CUMM (1.2-3.4); ABSOLUTE MONOCYTE COUNT 0.7 /CUMM (0.10-0.60); BASOPHIL % 0.6 % (0.0-2.0); EOSINOPHIL % 0.2 % (0-5); GRANULOCYTE % 83.3 % (42.2-75.2); HEMATOCRIT 35.2 % (37-47); MEAN CORPUSCULAR HGB 26.6 PG (27.0-31.0); MEAN CORPUSCULAR HGB CONC 32.3 G/DL (33.0-37.0); MEAN CORPUSCULAR VOLUME 82.3 FL (81.0-99.0); PLATELET COUNT 513 /CUMM (130-400); RED BLOOD CELL CT 4.28 /CUMM (4.20-5.40); WHITE BLOOD CELL COUNT 12.1 /CUMM (4.8-10.8)
--- NOTE | 2017-09-26 10:30 | CT SCAN REPORT ---
EXAMINATION: CT LUMBAR SPINE WITHOUT CONTRAST CLINICAL INFORMATION: History compression fracture. Spinal stenosis with worsening back pain. COMPARISON: Lumbar spine CT scan for 09/11/2017. TECHNIQUE: Chargeback Analyst images were obtained. A CT acquisition of the lumbar spine was performed without intravenous administration of contrast. Data was reformatted into multiplanar images at the acquisition workstation. DLP: 673.04 mGy-cm FINDINGS: A compression fracture of the L2 vertebral body is redemonstrated. There has been worsening impaction of the upper endplate now resulting in 80% vertebral body height loss centrally which represents a substantial progression from to 40% measured on the previous examination from 08/26/2017. There is also worsening retropulsion of the posterior cortex causing AP compression of the thecal sac and at least moderate canal stenosis at the mid body level of L2. There is grade 1 anterolisthesis of L3 on L4 and L4 on L5 that appears to be related to advanced facet degenerative changes at these 2 levels. There is loss of intervertebral disc height with associated sclerotic degenerative endplate changes and disc osteophyte spurring at L4-L5. At T12-L1 there is no canal or neuroforaminal compromise. At L1-L2 L1 diffusely bulging disc in conjunction with facet degenerative change causes mild bilateral neuroforaminal encroachment. At L2-L3 there is partial effacement of perineural fat without overt compression of the foraminal segments of the L2 nerve roots. The retropulsed fragment may however have some impact on the traversing L2 nerve root segment. At L3-L4 there is a diffusely bulging disc. Advanced bilateral facet degenerative change. The canal is not well assessed due to inherent limitations of CT. No more than mild mass effect on the foraminal segments of the L3 nerve roots. At L4-L5 there is a diffusely bulging disc. Advanced bilateral facet degenerative change. The canal is not well assessed due to inherent limitations of CT. Mild to moderate compression of the foraminal segments of both L4 nerve roots, greater on the left. At L5-S1 there is advanced bilateral facet degenerative change. No canal or neuroforaminal compromise. Limited visualization of the retroperitoneal structures reveals heavily calcified atheromatous plaque involving the abdominal aorta and iliac vessels. Psoas and paraspinal muscle groups are symmetric. IMPRESSION: There has been substantial worsening of the compression fracture of the L2 vertebral body with now 80% vertebral body height loss centrally which represents a substantial progression from 40% height loss on the previous examination from 08/26/2017. There is also worsening retropulsion of the posterior cortex causing AP narrowing of the canal and at least moderate stenosis at the mid body L2 level. Evaluation of the canal and canal contents are however suboptimally assessed on this examination due to inherent limitations of CT without intrathecal contrast.
[2017-09-26] MEDS ORDERED: BACLOFEN10 M1 PO ×2 (12:36→13:14)
[2017-09-26] MEDS ORDERED: ULTRAM50 M1 PO ×2 (12:36→13:16)
[2017-09-26] MEDS ORDERED: IBUPROFEN400 M1 PO ×2 (12:36→13:14)
[2017-09-26] MEDS ORDERED: TRAZODONE HCL50 M1 PO (13:15)
[2017-09-26 13:24] VITALS: BP 146/82
[2018-02-05] MEDS ORDERED: GLIPIZIDE5 M2 PO (02:08)
[2018-02-05] MEDS ORDERED: CALCIUM600 M3 PO (02:09)
[2018-02-05] MEDS ORDERED: FLONASE ALLERG9.9 ML NASB (02:11)
[2018-02-05] MEDS ORDERED: IBUPROFEN600 M1 PO (04:16)
[2018-02-05] MEDS ORDERED: ULTRAM50 M1 PO (04:16)
[2018-02-05] MEDS ORDERED: BACLOFEN10 M1 PO (04:16)
[2018-02-14] MEDS ORDERED: MIRALAX119 GM PO ×2 (19:16→22:11)
== END 2017-09-26 13:25 ==
LOC: ERH 08:01
PROVIDERS: Emergency Medicine
DX: S32.029A Unspecified fracture of second lumbar vertebra, initial encounter for closed fracture (principal); M48.061 Spinal stenosis, lumbar region without neurogenic claudication; X58.XXXA Exposure to other specified factors, initial encounter; Y92.9 Unspecified place or not applicable; Y93.9 Activity, unspecified
CPT/HCPCS: 96374; 96375; J1885

== ENCOUNTER 2017-09-28 08:36 | Emergency (ER) | payer OTHER, MEDICARE ==
[~2017-09-28] VITALS: Ht 167.6 cm; Wt 73.5 kg
[~2017-09-28 08:36] MED LIST changes: +ATORVASTATIN CA10 M1 PO; +B-121000 MC3 PO; +BACLOFEN10 M1 PO; +COZAAR25 M1 PO; +IBUPROFEN400 M1 PO; +JANUMET 50-1,01 EACH PO; +OMEPRAZOLE20 M2 PO; +TRAZODONE HCL50 M1 PO; +ULTRAM50 M1 PO; +VITAMIN D31000 UNI1 PO
[2017-09-28 09:50] LABS: ABSOLUTE BASOPHIL COUNT 0 /CUMM (0.0-0.2); ABSOLUTE EOSINOPHIL COUNT 0.1 /CUMM (0.0-0.7); ABSOLUTE GRANULOCYTE CT 8.8 /CUMM (1.4-6.5); ABSOLUTE LYMPH COUNT 1.3 /CUMM (1.2-3.4); ABSOLUTE MONOCYTE COUNT 0.7 /CUMM (0.10-0.60); BASOPHIL % 0.2 % (0.0-2.0); EOSINOPHIL % 0.5 % (0-5); GRANULOCYTE % 81.2 % (42.2-75.2); HEMATOCRIT 36.8 % (37-47); MEAN CORPUSCULAR HGB 26.7 PG (27.0-31.0); MEAN CORPUSCULAR HGB CONC 32.8 G/DL (33.0-37.0); MEAN CORPUSCULAR VOLUME 81.2 FL (81.0-99.0); PLATELET COUNT 617 /CUMM (130-400); RBC DISTRIBUTION WIDTH 16.1 % (11.5-14.5); RED BLOOD CELL CT 4.53 /CUMM (4.20-5.40); WHITE BLOOD CELL COUNT 10.8 /CUMM (4.8-10.8)
--- NOTE | 2017-09-28 11:38 | CT SCAN REPORT ---
EXAMINATION: CT HEAD WITHOUT CONTRAST CLINICAL INFORMATION: Altered mental status. COMPARISON: Head CT 07/19/2017 and brain MRI 06/18/2017. TECHNIQUE: Contiguous axial imaging was performed from the skull base to vertex without intravenous administration of contrast. DLP: 849 mGy-cm. FINDINGS: There is no intracranial hemorrhage, large infarction, or mass lesion. There is no extra-axial collection. There is mild diffuse brain parenchymal volume loss with prominence of the ventricles and sulci. There is mild scattered hypoattenuation in the bilateral cerebral white matter, which is nonspecific but likely reflects small vessel disease. The paranasal sinuses are clear. The mastoids and middle ear cavities are clear. IMPRESSION: - No acute intracranial abnormality. - Mild diffuse brain parenchymal volume loss and background of mild small vessel ischemic changes.
--- NOTE | 2017-09-28 12:19 | CT SCAN REPORT ---
EXAMINATION: CT ABDOMEN AND PELVIS WITH CONTRAST CLINICAL INFORMATION: Acute mental status change. COMPARISON: None TECHNIQUE: Multidetector volumetric imaging was performed of the abdomen and pelvis following IV administration of 95 mL of Optiray 320 intravenous contrast. Sagittal and coronal reformatted images were obtained on the technologist's workstation. DLP: 580 mGy-cm Chairman & Chief Executive Officer: Numerous air-filled loops of nondilated small bowel are seen in the lower abdomen. Air and stool is present in the colon to the level of the splenic flexure. FINDINGS: Chairman & Chief Executive Officer: Numerous air-filled loops of small bowel are present in the lower abdomen pelvis but there is air and stool in the colon to the level of the splenic flexure. Distal to this location, the colon is relatively decompressed. LUNG BASES: The visualized lung bases are unremarkable. LIVER, GALLBLADDER, AND BILIARY TREE: The liver is normal in size, shape, and attenuation. No focal hepatic lesion or biliary ductal dilatation is present. The gallbladder is unremarkable with no evidence of radiopaque gallstones, gallbladder wall thickening, or obvious pericholecystic inflammatory changes. PANCREAS: Atrophic due to age. SPLEEN: Unremarkable. ADRENAL GLANDS: Unremarkable. KIDNEYS AND URETERS: The kidneys are normal in size, shape, and attenuation. No hydronephrosis, hydroureter, or calculi seen. No perinephric stranding. BLADDER: Nearly empty. GASTROINTESTINAL TRACT: The stomach and small bowel are unremarkable. Numerous diverticula are present in the right colon. There is no indication of right-sided diverticulitis. The appendix is normal. ABDOMINAL WALL: No significant hernia is appreciated. LYMPH NODES: Normal. VASCULAR: Unremarkable. PELVIC VISCERA: Postmenopausal uterus is normal in shape and size. OSSEOUS STRUCTURES: There is vertebral plana involving the vertebral body at L2. In fact, a fairly large fracture fragment is displaced posteriorly within the spinal canal. There is degenerative disc disease at L3-L4 and L4-L5. Severe facet arthritis involves the lower lumbar spine. There is enthesopathy involving the ischial tuberosities more pronounced on the right than left. A joint mouse is located in the left hip. No suspicious lesions are seen. IMPRESSION: 1. Right-sided colonic diverticulosis. 2. Vertebral plana at L2. Bone fragment in the spinal canal.
--- NOTE | 2017-09-28 16:25 | ED GENERAL ADULT ---
History of Present Illness General Chief Complaint: Altered Mental Status Stated Complaint: CONFUSED PER Source: family, old records Exam Limitations: confusion Vital Signs & Intake/Output Vital Signs & Intake/Output Vital Signs Date Time Temp Pulse Resp B/P B/P Pulse O2 O2 Flow FiO2 Mean Ox Delivery Rate 09/28 1652 98.9 82 20 126/84 97 Room Air 09/28 1517 98.6 80 20 147/83 99 Room Air 09/28 1432 82 20 150/80 98 Room Air 09/28 1247 98.5 80 20 150/80 98 Room Air 09/28 1040 98.0 78 20 157/80 98 Room Air 09/28 0840 97.3 103 20 185/78 98 Room Air Allergies Coded Allergies: oxycodone (Intermediate, VOMITING 09/26/17) cephalexin (From KEFLEX) (HIVES 09/27/15) Reconcile Medications Aspirin (Aspirin*) 81 MG TAB.CHEW 81 MG PO DAILY [facility] Atorvastatin Calcium 10 MG TABLET 1 TAB PO DAILY HYPERCHOLESTEREMIA (Reported ) Baclofen 10 MG TABLET 1 TAB PO TIDPRN PRN muscle spasm/strain Cholecalciferol (Vitamin D3) (Vitamin D3) 1,000 UNIT CAPSULE 1 CAP PO DAILY VITAMIN SUPP (Reported) Cyanocobalamin (Vitamin B-12) (B-12) 1,000 MCG TABLET 1 TAB PO DAILY SUPPLIMENT (Reported) Fluticasone Propionate (Flovent Hfa) 44 MCG AER.W.ADAP 1 PUFF PO DAILY COPD ( Reported) Glipizide 5 MG TABLET 1 TAB PO DAILY sugar (Reported) Ibuprofen 400 MG TABLET 1 TAB PO Q6P PRN pain Losartan Potassium (Cozaar) 25 MG TABLET 1 TAB PO DAILY HTN (Reported) Methimazole 5 MG TABLET 1 TAB PO DAILY Thyroid (Reported) except THURSDAY Methylprednisolone. (Medrol) 4 MG TAB.DS.PK 1 DP PO AD BACK PAIN 6 on day 1 then reduce by one tablet daily until gone Omeprazole 20 MG CAPSULE.DR 1 CAP PO DAILY GERD (Reported) Sitagliptin Phos/Metformin HCl (Janumet 50-1,000 MG Tablet) 50 MG-1,000 MG TABLET 1 TAB PO BID DIABETES (Reported) Tramadol HCl (Ultram) 50 MG TABLET 1 TAB PO Q6P PRN severe pain Triage Note: 82 YO FEMALE TO TRIAGE WITH FOR EVAL OF CONFUSION SINCE THIS AM AROUND 5AM. STATES PT HAS BEEN BEING SEEN FOR HER LOWER BACK PAIN AND SHE AWOKE DURING THE NIGHT AND HE GAVE HER MOTRIN. STATES SHE WAS A&O X3 AT THAT TIME. REPORTS WHEN HE TRIED GETTING HER UP AROUND 5AM SHE DIDNT KNWO WHERE SHE WAS, STATES "SHE KEPT SAYING SHE NEEDED TO GO TO THE BATHROOM BUT SHE WASNT GOING" PT TEARFUL INTRIAGE, ALERT TO SELF ONLY. Triage Nurses Notes Reviewed? yes HPI: Patient is an 82-year-old female with recent past medical history of vertebral compression fracture who presents today with her in severe pain. With the pain, she has been somewhat confused according to her . Upon my initial encounter the patient is clearly in distress, requesting medication. She had a CT 2 days ago documenting worsening of her lumbar compression fracture from 40% to 80%. Past History Travel History Traveled to [place] past 21 day No Medical History Any Pertinent Medical History? 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 Yes Review of Systems Review of Systems Constitutional: Reports: see HPI. EENTM: Reports: no symptoms. Respiratory: Reports: no symptoms. Cardiovascular: Reports: no symptoms. GI: Reports: no symptoms. Genitourinary: Reports: no symptoms. Musculoskeletal: Reports: see HPI, back pain. Skin: Reports: no symptoms. Neurological/Psychological: Reports: no symptoms. Hematologic/Endocrine: Reports: no symptoms. Immunologic/Allergic: Reports: no symptoms. All Other Systems: Reviewed and Negative Comments Other than the features mentioned in history of present illness above, a detailed review of systems was not possible secondary to the patient's confusion Physical Exam Physical Exam General Appearance: alert, moderate distress Comments: HEENT: Inspection of the head reveals a normocephalic cranium with no signs of trauma. Ophtho: Extraocular muscles are intact and pupils are equal and reactive to light bilaterally with no afferent pupillary defect. The sclera are noninjected , and there is no obvious discharge. Neck: The trachea is midline, there is no obvious asymmetry or mass over the thyroid, and there is no wincing on palpation of the midline cervical spine. Respiratory: The lungs are clear and equal to auscultation bilaterally without wheezes, rales, or rhonchi. The patient exhibits no signs of labored breathing. Cardiac: Regular rhythm and non-tachycardic without appreciable murmurs on auscultation. No obvious JVD. GI: Examination of the abdomen reveals no significant wincing on deep palpation. : Deferred Back: Focus examination reveals tenderness in the lumbar region which is persistent but vague in location. No paresthesias or radiculopathy distally, saddle anesthesia, para, numbness or loss of rectal tone. Neuro: Focused neurologic examination was attempted, but secondary to the patient's mild confusion, it was extremely limited. Features that were obtainable included equal pupils and a lack of gross focal motor abnormality on patient's limited passive motion. Behavioral: Calm. Dermatologic: Dermatologic examination reveals no diffuse rashes or exanthems, no petechiae, no ecchymoses, and no other signs of erythema or infection. Core Measures ACS in differential dx? No CVA/TIA Diagnosis: No Sepsis Present: No Sepsis Focused Exam Completed? No Progress Differential Diagnoses I considered the following diagnoses in my evaluation of the patient: Worsening of lumbar compression fracture, lumbar spasm, cauda equina, retropulsion into the cord, chronic pain Plan of Care: Orders Procedure Date/time Status URINE DRUG SCREEN FOR ER ONLY 09/28 928 Complete URINALYSIS 09/28 928 Complete COMPREHENSIVE METABOLIC PANEL 09/28 928 Complete CBC WITHOUT DIFFERENTIAL 09/28 928 Complete Laboratory Tests 09/28/17 1014: Urine Opiates Screen 1506.00, Methadone Screen < 40, Barbiturate Screen < 60, Ur Phencyclidine Scrn < 6.00, Amphetamines Screen < 100, U Benzodiazepines Scrn < 85, Urine Cocaine Screen < 50, Urine Cannabis Screen < 5.00, Urinalysis LIGHT H , Urine Color YEL, Urine Clarity HAZY H, Urine pH 7.5, Ur Specific [place] 1.010, Urine Protein NEG, Urine Ketones TRACE H, Urine Nitrite NEG, Urine Bilirubin NEG, Urine Urobilinogen 0.2, Ur Leukocyte Esterase SMALL H, Ur Microscopic SEDIMENT EXAMINED, Urine RBC RARE, Urine WBC 3-5 H, Ur Epithelial Cells FEW, Urine Bacteria RARE H, Urine Mucus RARE, Urine Hemoglobin NEG, Urine Glucose NEG 09/28/17 0938: Anion Gap 11, Estimated GFR > 60, BUN/Creatinine Ratio 15.7, Glucose 179 H, Calcium 8.9, Total Bilirubin 0.7, AST 12 L, ALT 18, Alkaline Phosphatase 80, Total Protein 6.7, Albumin 3.9, Globulin 2.8, Albumin/Globulin Ratio 1.4, CBC w Diff NO MAN DIFF REQ, RBC 4.53, MCV 81.2, MCH 26.7 L, MCHC 32.8 L, RDW 16.1 H , MPV 7.0 L, Gran % 81.2 H, Lymphocytes % 12.0 L, Monocytes % 6.1, Eosinophils % 0.5, Basophils % 0.2, Absolute Granulocytes 8.8 H, Absolute Lymphocytes 1.3, Absolute Monocytes 0.7 H, Absolute Eosinophils 0.1, Absolute Basophils 0 Initial ED EKG: none Comments: Patient presented with significant pain from known lumbar compression fracture. 2 days ago, a repeat CT showed progression of the compression component from 40% to 80%. I repeated her CT today to investigate the abdominal pain she was having, and we saw worsening of the retropulsion of a fragment of her spine. I discussed this with spine orthopedics, and they stated that given that she is not a surgical candidate, the plan should be pain control. After a single doses of opiate analgesia in the emergency department today, her pain was completely controlled. She was requesting discharge home which I felt was reasonable. Stable at time of discharge. Medrol Dosepak prescribed at the recommendation of spine. Departure Departure Disposition: HOME OR SELF CARE Condition: Stable Clinical Impression Primary Impression: Lumbar compression fracture Qualifiers: Encounter type: subsequent encounter Lumbar vertebra fracture level : L2 Fracture type: closed Fracture healing: with routine healing Qualified Code : S32.020D - Wedge compression fracture of second lumbar vertebra, subsequent encounter for fracture with routine healing Referrals: Melissa Hardy MD (PCP/Family) Additional Instructions: Your CT today showed some worsening in the lumbar fracture. However, we spoke with Dr. Felder's team and he recommended further pain control and a Medrol steroid Dosepak, because he does not feel that surgery would be an appropriate option right now. He is follow-up with her primary doctor for reassessment of any other ongoing symptoms. Your other laboratory studies were largely normal. Departure Forms: Customer Survey General Discharge Information Prescriptions: Current Visit Scripts Methylprednisolone. (Medrol) 1 DP PO AD #1 DP 6 on day 1 then reduce by one tablet daily until gone Critical Care Note Critical Care Note Critical Care Time: non-applicable
[2017-09-28] MEDS ORDERED: MEDROL4 M2 PO (16:30)
[2017-09-28 16:52] VITALS: BP 126/84
[2018-02-05] MEDS ORDERED: GLIPIZIDE5 M2 PO (02:08)
[2018-02-05] MEDS ORDERED: CALCIUM600 M3 PO (02:09)
[2018-02-05] MEDS ORDERED: FLONASE ALLERG9.9 ML NASB (02:11)
[2018-02-05] MEDS ORDERED: BACLOFEN10 M1 PO (04:16)
[2018-02-05] MEDS ORDERED: ULTRAM50 M1 PO (04:16)
[2018-02-05] MEDS ORDERED: IBUPROFEN600 M1 PO (04:16)
[2018-02-14] MEDS ORDERED: MIRALAX119 GM PO ×2 (19:16→22:11)
== END 2017-09-28 16:52 ==
LOC: ERH 08:36
PROVIDERS: Student in an Organized Health Care Education/Training Program
DX: S32.009A Unspecified fracture of unspecified lumbar vertebra, initial encounter for closed fracture (principal); X58.XXXA Exposure to other specified factors, initial encounter; Y92.9 Unspecified place or not applicable; Y93.9 Activity, unspecified
CPT/HCPCS: 74177; 80307; 81001; 96374

== ENCOUNTER 2017-10-16 09:59 | Inpatient (IN) | payer OTHER, MEDICARE ==
[~2017-10-16] VITALS: Ht 167.6 cm; Wt 67.2 kg
[~2017-10-16 09:59] MED LIST changes: +MEDROL4 M2 PO
--- NOTE | 2017-10-16 10:08 | ED AMS/SEIZURE/WEAK/DIZZY ---
History of Present Illness General Chief Complaint: Lower Extremity Problems Stated Complaint: BIBA BLE PAIN/WEAKNESS Source: patient Exam Limitations: no limitations Vital Signs & Intake/Output Vital Signs & Intake/Output Vital Signs Date Time Temp Pulse Resp B/P B/P Pulse O2 O2 Flow FiO2 Mean Ox Delivery Rate 10/16 1420 Room Air Room Air 10/16 1401 97.5 87 20 128/74 100 Room Air 10/16 1307 98.0 90 18 143/74 100 Room Air 10/16 1149 98.0 80 18 136/67 99 Room Air 10/16 1056 Room Air Room Air 10/16 1008 98.9 92 15 187/83 99 Room Air Room Air Allergies Coded Allergies: oxycodone (Intermediate, VOMITING 10/16/17) cephalexin (From KEFLEX) (HIVES 10/16/17) Reconcile Medications Aspirin (Aspirin*) 81 MG TAB.CHEW 81 MG PO DAILY [facility] Atorvastatin Calcium 10 MG TABLET 1 TAB PO DAILY HYPERCHOLESTEREMIA (Reported ) Baclofen 10 MG TABLET 1 TAB PO TIDPRN PRN muscle spasm/strain Cholecalciferol (Vitamin D3) (Vitamin D3) 1,000 UNIT CAPSULE 1 CAP PO DAILY VITAMIN SUPP (Reported) Cyanocobalamin (Vitamin B-12) (B-12) 1,000 MCG TABLET 1 TAB PO DAILY SUPPLIMENT (Reported) Fluticasone Propionate (Flovent Hfa) 44 MCG AER.W.ADAP 1 PUFF PO DAILY COPD ( Reported) Glipizide 5 MG TABLET 1 TAB PO DAILY sugar (Reported) Ibuprofen 400 MG TABLET 1 TAB PO Q6P PRN pain Losartan Potassium (Cozaar) 25 MG TABLET 1 TAB PO DAILY HTN (Reported) Methimazole 5 MG TABLET 1 TAB PO DAILY Thyroid (Reported) except THURSDAY Omeprazole 20 MG CAPSULE.DR 1 CAP PO DAILY GERD (Reported) Sitagliptin Phos/Metformin HCl (Janumet 50-1,000 MG Tablet) 50 MG-1,000 MG TABLET 1 TAB PO BID DIABETES (Reported) Tramadol HCl (Ultram) 50 MG TABLET 1 TAB PO Q6P PRN severe pain Triage Nurses Notes Reviewed? yes Onset: Abrupt Duration: week(s): (1), constant, getting worse Timing: recent history Injury Environment: home Severity: moderate, severe Severity Numbers: 10 Modifying Factors: Worsens With: movement. Associated Symptoms: DENIES HPI: 82-year-old female history of hypertension chronic hip and back pain sciatica presents to the ER for evaluation complaining of worsening pain to her right hip rating to her right knee. She denies any swelling to the leg she's been taking tramadol without improvement. She's been unable to intubate at her baseline with her walker secondary to pain. There is been no recent fall or trauma she denies chest pain abdominal pain nausea vomiting diarrhea. (Mike Lemus) Past History Travel History Traveled to [place] past 21 day No Medical History Any Pertinent Medical History? 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 No (Mike Lemus) Review of Systems Review of Systems Constitutional: Reports: see HPI. Comments Review of systems: See HPI, All other systems negative. Constitutional, no chills no fever HEENT: no sore throat no congestion Cardiovascular: No chest pain Skin: no rashes, no change in skin Respiratory: No dyspnea no cough no sputum GI: No nausea no vomiting, Muscle skeletal: Chronic joint pain, no back pain, no neck pain, Neurologic: , no headache Heme/endocrine: No bruising Immunology: No lymphadenopathy (Mike Lemus) Physical Exam Physical Exam General Appearance: well developed/nourished, alert Comments: Well-developed well-nourished person in no acute distress HEENT: Normal EENT exam; PERRL, EOMI, no nystagmus. HEAD is atraumatic. moist mucous membranes. Neck: Supple, normal range of motion without pain or tenderness Back: Nontender, no CVA tenderness. Full range of motion Cardiovascular: Regular rate and rhythms no murmurs Respiratory: C No respiratory distress. Patient speaking in full complete sentences. Breath sounds clear to auscultation bilaterally: NO W/R/R Abdomen: Soft, nontender nondistended, no appreciable organomegaly. Normal bowel sounds. No rebound/guarding, No appreciable enlargement of the abdominal aorta, No ascites. upper Extremity: No edema, full range of motion of extremities, normal and equal pulses bilaterally, 5 out of 5 strength noted to bilateral upper extremities Hip/Pelvis: Atraumatic/Stable. Limited range of motion secondary to pain No pain with pelvic compression Knee: Atraumatic/stable.. No joint swelling, no effusion. No laxity. Negative jerel/anterior drawer test. pain with ROM Leg: Atraumatic. Nontender. No edema, 5 out of 5 strength in the lower extremity, normal dorsiflexion of great toe bilaterally, gross sensation is intact. Ankle/Foot: Atraumatic/stable. Skin intact. FROM. No swelling, no effusion. No laxity on exam Pulses: Normal/equal DP/PT pulses bilaterally. Brisk cap refill Neuro: Alert oriented x3, motor sensory normal, cranial nerves II through XII grossly intact. There were no obvious focal neurologic abnormalities. Skin: No appreciable rash on exposed skin, skin is warm and dry. Psych: Mood and affect is normal, memory and judgment is normal. Core Measures ACS in differential dx? Yes CVA/TIA Diagnosis No Sepsis Present: No Sepsis Focused Exam Completed? No (Valerie ROSALES,Mike) Progress Differential Diagnosis: anemia, electrolyte imbalance, UTI/pyelo, fx, sprain, contusion Plan of Care: Orders Procedure Date/time Status CBC WITHOUT DIFFERENTIAL 10/17 06 Active BASIC ELECTROLYTES PLUS BUN&CR 10/17 0600 Active Heart Healthy Diet 10/16 L Complete Heart Healthy Diet 10/16 D Active Heat/Cold Therapy 10/16 1559 Active Turn and Reposition 10/16 1443 Active Skin Integrity Protocol 10/16 1443 Active MISSING MEDICATION FORM 10/16 1413 Active RT: Evaluation 10/16 1407 Active Weight 10/16 1345 Complete Vital Signs 10/16 1345 Active Teach/Educate 10/16 1345 Active Pain Treatment and Response 10/16 1345 Active Nutritional Intake, Monitor 10/16 1345 Active Isolation 10/16 1345 Complete Intake & Output 10/16 1345 Active Patient Care Conference 10/16 1345 Active Activity/Ambulation 10/16 1345 Active Pathway - chart 10/16 1223 Active TRC EVALUATION (GEN) 10/16 1222 Complete Pathway - chart 10/16 1222 Active House Staff 10/16 1222 Active Code Status 10/16 1222 Active Patient Data 10/16 1153 Active ED Holding Orders 10/16 1136 Active Admit to inpatient 10/16 1136 Active Vital Signs 10/16 1136 Active Code Status 10/16 1136 Complete THYROID STIMULATING HORMONE 10/16 1034 Complete FREE T4 10/16 1034 Complete Intake & Output 10/16 1031 Active Han, Insertion/Removal/Asses 10/16 1020 Active CULTURE,URINE 10/16 1020 Active URINALYSIS 10/16 1020 Complete TROPONIN LEVEL 10/16 1020 Complete COMPREHENSIVE METABOLIC PANEL 10/16 1020 Complete CBC WITHOUT DIFFERENTIAL 10/16 1020 Complete EKG 10/16 1020 Active Lab Add-on Test 10/16 UNK Active VTE Mechanical Prophylaxis 10/16 UNK Complete Intake & Output 10/16 UNK Complete FingerStick- Glucose 10/16 UNK Active Activity/Ambulation 10/16 UNK Active MRI-LUMBAR SPINE 10/16 UNK Active Current Medications Sig/Annita Start time Last Medication Dose Stop Time Status Admin Aspirin 81 MG DAILY 10/17 899 AC (Aspirin) Atorvastatin Calcium 10 MG DAILY 10/17 899 AC (Lipitor) Cholecalciferol 1,000 IU DAILY 10/17 09 AC (Vitamin D) Cyanocobalamin 1,000 MCG DAILY 10/17 899 AC (Vitamin B12) Enoxaparin Sodium 40 MG DAILY 10/17 899 AC (Lovenox) Fluticasone 2 PUF DAILY 10/17 09 AC Propionate (Flovent) Losartan Potassium 25 MG DAILY 10/17 09 AC (Cozaar) Methimazole 5 MG DAILY 10/17 09 AC (Tapazole 5 MG Tablet) Insulin Aspart 0 TIDAC 10/16 1700 AC (NovoLOG) Acetaminophen 1,000 MG Q6H 10/16 1600 AC (Ofirmev) 10/17 1014 N/A 1 UNIT (No Carrier) Polyethylene Glycol 17 GM DAILY 10/16 1445 AC (Miralax) Senna/Docusate Sodium 1 TAB BID 10/16 1444 AC (Senokot S) Morphine Sulfate 2 MG Q6P PRN 10/16 1430 AC (MORPHINE SULFATE) Baclofen 10 MG TIDPRN PRN 10/16 1315 AC (Lioresal 10MG Tablet) Ibuprofen 400 MG Q6P PRN 10/16 1315 AC (Motrin) Tramadol HCl 50 MG Q6P PRN 10/16 1315 AC 10/16 (Ultram) 1443 Omeprazole 20 MG DAILY 10/16 1302 AC 10/16 (Prilosec) 1427 Sodium Chloride 1,000 ML .[id number] 10/16 1230 AC 10/16 (Normal Saline 0.9%) 10/17 0149 1253 Laboratory Tests 10/16/17 1053: Urine Color YEL, Urine Clarity CLEAR, Urine pH 6.0, Ur Specific [place] 1.010, Urine Protein NEG, Urine Ketones NEG, Urine Nitrite NEG, Urine Bilirubin NEG, Urine Urobilinogen 0.2, Ur Leukocyte Esterase NEG, Ur Microscopic EXAM NOT REQUIRED, Urine Hemoglobin NEG, Urine Glucose NEG 10/16/17 1034: Anion Gap 13, Estimated GFR > 60, BUN/Creatinine Ratio 12.5, Glucose 110 H, Calcium 9.4, Total Bilirubin 0.9, AST 15, ALT 15, Alkaline Phosphatase 65, Troponin I < 0.01, Total Protein 6.6, Albumin 4.0, Globulin 2.6, Albumin/ Globulin Ratio 1.5, TSH 2.720, Free T4 1.63, CBC w Diff NO MAN DIFF REQ, RBC 4.66, MCV 80.8 L, MCH 27.1, MCHC 33.6, RDW 16.3 H, MPV 7.5, Gran % 79.8 H, Lymphocytes % 13.2 L, Monocytes % 5.9, Eosinophils % 0.9, Basophils % 0.2, Absolute Granulocytes 8.5 H, Absolute Lymphocytes 1.4, Absolute Monocytes 0.6, Absolute Eosinophils 0.1, Absolute Basophils 0 Microbiology 10/16 1053 URINE ROUT: Urine Culture - RECD Labs ordered old records reviewed medicated with IV Tylenol x-rays ordered. Case discussed with Dr. Sanchez agrees with plan. I discussed with the patient family her x-ray results lab work given she is a fall risk unable to ambulate here secondary to pain premature discharge medically harmful Case discussed with Dr rodriguez will admit . Diagnostic Imaging: Viewed by Me: Radiology Read. Discussed w/RAD: Radiology Read. Radiology Impression: PATIENT: KEAGAN DODSON PRESENT AGE: 82 PATIENT ACCOUNT NO: [id number] : 37 LOCATION: [facility] ORDERING PHYSICIAN: Mike ROSALES SERVICE DATE: 10/16/17 EXAM TYPE: RAD - XRY- KNEE COMPLETE RIGHT EXAMINATION: XR KNEE, RIGHT CLINICAL INFORMATION: Right knee pain. COMPARISON: 10/01/2007 and 03/06/2017. TECHNIQUE: Four views of the right knee. FINDINGS: A right total knee prosthesis is present which is new since . The prosthesis is in good position and no fractures or dislocations are seen. IMPRESSION: Normal-appearing right knee joint prosthesis. DICTATED BY: Demarco Rodriguez MD DATE/TIME DICTATED:10/16/171100 PERSONAL INJURY SPECIALIST:RONA DATE/TIME TRANSCRIBED:10/16/171100 CONFIDENTIAL, DO NOT COPY WITHOUT APPROPRIATE AUTHORIZATION. <Electronically signed in Other Vendor System> SIGNED BY: Demarco Rodriguez MD 10/16/17 1115, PATIENT: KEAGAN DODSON PRESENT AGE: 82 PATIENT ACCOUNT NO: [id number] : 37 LOCATION: [facility] ORDERING PHYSICIAN: Mike ROSALES SERVICE DATE: 10/16/17 EXAM TYPE: RAD - XRY-HIP 2-3 VIEWS, RIGHT EXAMINATION: XR HIP, RIGHT CLINICAL INFORMATION: Right hip pain COMPARISON: CT abdomen and pelvis 09/28/2017 TECHNIQUE: Two views of the right hip. FINDINGS: Mild degenerative changes are noted in the right hip with some supra-acetabular sclerosis and some minimal osteophyte formation. No fractures or bony destructive lesions are seen. There is been no interval change since the study earlier this month. IMPRESSION: Mild degenerative changes right hip. DICTATED BY: Demarco Rodriguez MD DATE/TIME DICTATED:10/16/171058 PERSONAL INJURY SPECIALIST:RONA DATE/TIME TRANSCRIBED:1058 CONFIDENTIAL, DO NOT COPY WITHOUT APPROPRIATE AUTHORIZATION. < Electronically signed in Other Vendor System> SIGNED BY: Demarco Rodriguez MD 10/16/171103 Initial ED EKG: normal intervals, normal p-waves, normal QRS complex, normal sinus rhythm Prior EKG: unchanged (Valerie ROSALES,Mike) Departure Departure Time of Disposition: 1134 Disposition: STILL A PATIENT Condition: Stable Clinical Impression Primary Impression: Gait instability Secondary Impressions: Hip pain Referrals: Melissa Hardy MD (PCP/Family) Departure Forms: Customer Survey General Discharge Information Admission Note Spoke With: Jocelyn Rodriguez MD Documentation of Exam: Documentation of any treatments & extenuating circumstances including Concerns Regarding Discharge (functional status, medication knowledge or non-compliance, living conditions, etc.) that warrant an admission rather than observation: Unable to ambulate at home with assistance of her walker, she is a fall risk unable to care for self will require rehabilitation placement premature discharge would BE medically harmful (Valerie ROSALES,Mike) PA/NUCLEAR ENGINEERING TECHNICIAN Co-Sign Statement Statement: ED Attending supervision documentation- [X] I saw and evaluated the patient. I have also reviewed all the pertinent lab results and diagnostic results. I agree with the findings and the plan of care as documented in the PA's/NUCLEAR ENGINEERING TECHNICIAN's documentation. [X] I have reviewed the ED Record and agree with the PA's/NUCLEAR ENGINEERING TECHNICIAN's documentation. [] Additions or exceptions (if any) to the PAs/NUCLEAR ENGINEERING TECHNICIAN's note and plan are summarized below: [PT TO BE ADMITTED FOR GAIT INSTABILITY AND PROFOUND WEAKNESS. PT WILL NEED PT EVALUATION AND PROBABLE STR.] (Daniel CESAR,Danny Duarte)
[2017-10-16 10:41] LABS: ABSOLUTE BASOPHIL COUNT 0 /CUMM (0.0-0.2); ABSOLUTE EOSINOPHIL COUNT 0.1 /CUMM (0.0-0.7); ABSOLUTE GRANULOCYTE CT 8.5 /CUMM (1.4-6.5); ABSOLUTE LYMPH COUNT 1.4 /CUMM (1.2-3.4); ABSOLUTE MONOCYTE COUNT 0.6 /CUMM (0.10-0.60); BASOPHIL % 0.2 % (0.0-2.0); EOSINOPHIL % 0.9 % (0-5); GRANULOCYTE % 79.8 % (42.2-75.2); HEMATOCRIT 37.7 % (37-47); MEAN CORPUSCULAR HGB 27.1 PG (27.0-31.0); MEAN CORPUSCULAR HGB CONC 33.6 G/DL (33.0-37.0); MEAN CORPUSCULAR VOLUME 80.8 FL (81.0-99.0); MEAN PLATELET VOLUME 7.5 FL (7.4-10.4); PLATELET COUNT 468 /CUMM (130-400); RBC DISTRIBUTION WIDTH 16.3 % (11.5-14.5); RED BLOOD CELL CT 4.66 /CUMM (4.20-5.40); WHITE BLOOD CELL COUNT 10.7 /CUMM (4.8-10.8)
--- NOTE | 2017-10-16 11:04 | RADIOLOGY REPORT ---
EXAMINATION: XR HIP, RIGHT CLINICAL INFORMATION: Right hip pain COMPARISON: CT abdomen and pelvis 09/28/2017 TECHNIQUE: Two views of the right hip. FINDINGS: Mild degenerative changes are noted in the right hip with some supra-acetabular sclerosis and some minimal osteophyte formation. No fractures or bony destructive lesions are seen. There is been no interval change since the study earlier this month. IMPRESSION: Mild degenerative changes right hip.
--- NOTE | 2017-10-16 11:15 | RADIOLOGY REPORT ---
EXAMINATION: XR KNEE, RIGHT CLINICAL INFORMATION: Right knee pain. COMPARISON: 10/01/2007 and 03/06/2017. TECHNIQUE: Four views of the right knee. FINDINGS: A right total knee prosthesis is present which is new since 03/06/2017. The prosthesis is in good position and no fractures or dislocations are seen. IMPRESSION: Normal-appearing right knee joint prosthesis.
--- NOTE | 2017-10-16 13:15 | History & Physical ---
Chucky Sinha 10/16/17 1306: General Information and HPI MD Statement: I have seen and personally examined KEAGAN HOFF and documented this H&P. The patient is a 82 year old F who presented with a patient stated chief complaint of lower leg weakness. Source of Information: patient, family Exam Limitations: no limitations History of Present Illness: Ms. Hoff is a medical history of hypertension, and he is chronic bronchitis, due to polio, diabetes, hypothyroidism, pulmonary hypertension who presented to ED this morning lower leg weakness. Patient started experiencing leg pain/weakness in June 2014 when she had a fall. She did not seek medical attention and has been less and less ambulatory since then. No recent falls. Note, patient did have a TIA in May 2017 and was found to be unsteady on her feet and even then. Today she complains of excruciating right leg pain, worse with movement, lying down makes it better, located in her midback radiating down her posterior leg. Motrin, Tramadol provide partial relief. The pain is severely affecting her functional status. This am she was not able to urinate by her self, and a Han was placed in ED for bladder evacuation. Feels constiapted. No incontinence. Has been seeing ortho and has received steroid shots in [place], partially helps. Has been visiting PT, with minimal relief. No fevers or chills. No previous fractures, former smoker, no alcohol use, no FH of fragility fracture, no history of osteopenia or osteoporosis. Other systems reviewed and negative, except as above. Allergies/Medications Allergies: Coded Allergies: oxycodone (Intermediate, VOMITING 10/16/17) cephalexin (From KEFLEX) (HIVES 10/16/17) Home Med list Aspirin (Aspirin*) 81 MG TAB.CHEW 81 MG PO DAILY Heart Health Atorvastatin Calcium 10 MG TABLET 1 TAB PO DAILY HYPERCHOLESTEREMIA (Reported ) Baclofen 10 MG TABLET 1 TAB PO TIDPRN PRN muscle spasm/strain Cholecalciferol (Vitamin D3) (Vitamin D3) 1,000 UNIT CAPSULE 1 CAP PO DAILY VITAMIN SUPP (Reported) Cyanocobalamin (Vitamin B-12) (B-12) 1,000 MCG TABLET 1 TAB PO DAILY SUPPLIMENT (Reported) Fluticasone Propionate (Flovent Hfa) 44 MCG AER.W.ADAP 1 PUFF PO DAILY COPD ( Reported) Glipizide 5 MG TABLET 1 TAB PO DAILY sugar (Reported) Ibuprofen 400 MG TABLET 1 TAB PO Q6P PRN pain Losartan Potassium (Cozaar) 25 MG TABLET 1 TAB PO DAILY HTN (Reported) Methimazole 5 MG TABLET 1 TAB PO DAILY Thyroid (Reported) except THURSDAY Omeprazole 20 MG CAPSULE.DR 1 CAP PO DAILY GERD (Reported) Sitagliptin Phos/Metformin HCl (Janumet 50-1,000 MG Tablet) 50 MG-1,000 MG TABLET 1 TAB PO BID DIABETES (Reported) Tramadol HCl (Ultram) 50 MG TABLET 1 TAB PO Q6P PRN severe pain Past History Travel History Traveled to [place] past 21 day No Medical History Neurological: NONE EENT: NONE Cardiovascular: hypertension Respiratory: CHRONIC BRONCHITIS 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 Psychosocial History Services at Home: None ETOH Use: denies use Illicit Drug Use: denies illicit drug use Review of Systems Review of Systems Constitutional: Reports: see HPI. Exam & Diagnostic Data Last 24 Hrs of Vital Signs/I&O Vital Signs Date Time Temp Pulse Resp B/P B/P Pulse O2 O2 Flow FiO2 Mean Ox Delivery Rate 10/16 1307 98.0 90 18 143/74 100 Room Air 10/16 1149 98.0 80 18 136/67 99 Room Air 10/16 1056 Room Air Room Air 10/16 1008 98.9 92 15 187/83 99 Room Air Room Air Intake & Output 10/16 1600 10/16 0800 10/16 0000 Intake Total 0 Output Total 400 Balance -400 Intake, Oral 0 Output, Urine 400 Patient 162 lb Weight Weight Reported by Patient Measurement Method Physical Exam General Appearance Alert, Oriented X3, Cooperative HEENT Atraumatic, PERRLA, EOMI Cardiovascular Regular Rate, Normal S1, Normal S2 Lungs Clear to Auscultation, Normal Air Movement Abdomen Normal Bowel Sounds, Soft, No Tenderness Neurological Normal Speech, Sensation Intact, Severely limited ROM in RLE, normal strength and ROM in all other extremities. Extremities No Clubbing, No Cyanosis Last 24 Hrs of Labs/David: Laboratory Tests 10/16/17 1053: Urine Color YEL, Urine Clarity CLEAR, Urine pH 6.0, Ur Specific [place] 1.010, Urine Protein NEG, Urine Ketones NEG, Urine Nitrite NEG, Urine Bilirubin NEG, Urine Urobilinogen 0.2, Ur Leukocyte Esterase NEG, Ur Microscopic EXAM NOT REQUIRED, Urine Hemoglobin NEG, Urine Glucose NEG 10/16/17 1034: Anion Gap 13, Estimated GFR > 60, BUN/Creatinine Ratio 12.5, Glucose 110 H, Calcium 9.4, Total Bilirubin 0.9, AST 15, ALT 15, Alkaline Phosphatase 65, Troponin I < 0.01, Total Protein 6.6, Albumin 4.0, Globulin 2.6, Albumin/ Globulin Ratio 1.5, CBC w Diff NO MAN DIFF REQ, RBC 4.66, MCV 80.8 L, MCH 27.1, MCHC 33.6, RDW 16.3 H, MPV 7.5, Gran % 79.8 H, Lymphocytes % 13.2 L, Monocytes % 5.9, Eosinophils % 0.9, Basophils % 0.2, Absolute Granulocytes 8.5 H, Absolute Lymphocytes 1.4, Absolute Monocytes 0.6, Absolute Eosinophils 0.1, Absolute Basophils 0 Microbiology 10/16 1053 URINE ROUT: Urine Culture - RECD Diagnostic Data Other Results Knee X-ray: IMPRESSION: Normal-appearing right knee joint prosthesis. Hip X-ray: IMPRESSION: Mild degenerative changes right hip. Assessment/Plan Assessment: 82-year-old woman with extensive past medical history here with excruciating pain and lower back, exacerbated with walking, standing and with certain postures-relieved with lying, with symptoms only by elective with no resultant sensory loss, but positive weakness in right leg, difficulty ambulating, functionally interfering with her daily activities symptoms suggestive of neurogenic claudication and concerning for lumbar spinal stenosis. Lumbar spine CT 09/26/17: IMPRESSION: There has been substantial worsening of the compression fracture of the L2 vertebral body with now 80% vertebral body height loss centrally which represents a substantial progression from 40% height loss on the previous examination from 08/26/2017. There is also worsening retropulsion of the posterior cortex causing AP narrowing of the canal and at least moderate stenosis at the mid body L2 level. Evaluation of the canal and canal contents are however suboptimally assessed on this examination due to inherent limitations of CT without intrathecal contrast. 1. Lumbar spinal stenosis. Strongly recommend MRI of lumbar spine or CT myelography. Optimal pain control. Orthopedic evaluation. Neurosurgery evaluation based on results of MRI. Physical therapy evaluation. 2. History of TIA. Continue aspirin and statin. 3. Hypertension. Continue losartan. 4. History of COPD. Continue Flovent. 5. Hyperthyroidism. Check TSH and thyroxine levels. High T4 levels can accelerate bone loss. Continue methimazole for now. 6. Diabetes. Hold home medications. Accu-Cheks 3 times a day before meals at bedtime and ISS. Full code. Lovenox for DVT prophylaxis. Heart healthy diet. As Ranked By This Provider Problem List: 1. Spinal stenosis of lumbar region Core Measures/Misc (02/08) Acute Coronary Syndrome ACS Diagnosis: No Congestive Heart Failure Congestive Heart Failure Diagnosis No Cerebrovascular Accident CVA/TIA Diagnosis: No VTE (View Protocol) VTE Risk Factors Acute Medical Illness No Mechanical VTE Prophylaxis d/t N/A MechProphylax Ordered No VTE Pharm Prophylaxis d/t NA PharmProphylax ordered Sepsis (View protocol) Sepsis Present: No If YES complete Sepsis Event Note If YES complete Sepsis Event Note Alberto Iglesias MD 10/16/17 3098: Core Measures/Misc (02/08) Sepsis (View protocol) If YES complete Sepsis Event Note If YES complete Sepsis Event Note Attending MD Review Statement Attending Statement Attending MD Statement: examined this patient, discuss w/resident/PA/VENETIAN BLIND MACHINE OPERATOR, agreed w/resident/PA/VENETIAN BLIND MACHINE OPERATOR, reviewed EMR data (avail), discussed with nursing, reviewed images, amended to note Attending Assessment/Plan: The patient is an 82 yo female with h/o HTN, bronchitis/obstructive disease, polio, DM2, hyperthyroidism (on Methimazole), hyperlipidemia, h/o TIA 06/11 who presented in the [place] ED with c/o progressive low back pain now radiating down her right leg. She has had great difficulty walking and severe pain on any movement. Pain had been ongoing x several months, however more severe last 1 week. Lumbar spine film here 09/26 showed worsening compression of L2 compared to prior study. The patient thinks she may have had an MRI done last week at [facility] (no studies found there). She now presents in the ED with intractable pain. She did receive IV morphine when po meds did not work. She denies any dyspnea, chest pain, or other symptoms. Physical Exam: VS: T 98.9, P 92, R 15, BP 187/83-143/74, PO 100% HEENT: eyes- PERRLA, EOMI di- sl dry mucosa Neck: no JVD or bruits Chest: clear Cor: RRR nl S1, S2 w/o murm Abd: BS+, soft, NT Ext: no edema, pulses 2+ Neuro: alert & oriented x 3, non-focal exam Back: + tenderness midline L2 region, mild paralumbar muscle spasm Labs/Tests- as above Impression/Plan: #Intractable Back Pain- with radicular symptoms down right leg due to progression of Acute on Chronic L2 compression fracture with RLE radiculopathy. Reviewed older films/CT with IR and may be candidate for intervention- vertebral augmentation. Plan: Admit to general medical floor. Will check to see if a recent MRI was done as OP- if not- will do today. Discussed with IR (Dr. Rodriguez) and patient may be a candidate for vertebral augmentation. Await MRI and will re-consult IR Friday 10/20 (Dr. Bailey will be in IR at that time). PT/OT, narcotic and non-narcotic analgesia. Has seen orthopedics as OP (reconsult). Will most likely require STR. Continue Baclofen for spasm. #HTN- BP slightly high on presentation, however better with analgesia. Plan: Continue Losartan. #Hyperthyroid- on Methimazole, clinically euthyroid. Plan: Continue Methimazole and check TSH/Free T4. #H/O TIA- 06/11- no focal deficits at present. Plan: Continue Atorvastatin/ASA. #Obstructive Lung Disease- lungs clear at present. Plan: Continue Flovent. #DM2- takes Glipizide and Janumet (Sitagliptin/Metformin). Plan: Will follow glucoscans and sliding scale insulin at present. #GERD- on Omeprazole. No symptoms at present. Has been taking NSAIDS. Plan: Continue Omeprazole. #Osteoporosis- by definition this patient has osteoporosis based on lumbar fracture. Plan: Continue Vit D/Ca supplement. May benefit from eventual endocrinology eval/DEXA (if not done before) and consider osteoporosis treatment.
[2017-10-16 14:01] VITALS: BP 128/74
[2017-10-16 16:00] VITALS: BP 130/84
--- NOTE | 2017-10-16 16:21 | Admission Certification ---
Admission Certification Certification Statement - As attending physician, I certify that at the time of - admission, based on clinical presentation, severity of - symptoms, need for further diagnostic testing and - therapeutic interventions, and risk of adverse outcomes - without in-hospital treatment, in my clinical assessment, - this patient requires an acute hospital stay for a minimum - of two nights or longer. I have also considered psychsocial - factors such as support system, advanced age, financial - issues, cognitive issues, and failed out-patient treatments, - past re-admission history, safety of patient, and lack of - compliance as applicable. Specific rationale supporting this admission is: The patient presents with intractable back pain that has become progressively worse with significant RLE radicular symptoms. Unable to ambulate. Needs admission for narcotic analgesia (IV Morphine), PT/OT- consider possible vertebral augmentation. Will most likely need STR when able to discharge.
--- NOTE | 2017-10-16 17:43 | MRI REPORT ---
EXAMINATION: MR LUMBAR SPINE WITHOUT CONTRAST CLINICAL INFORMATION: Follow-up compression fractures from CT 09/26/2017. 2 cyst candidate C4 vertebral augmentation. Rule out cord compression. Inability to ambulate and urinary. COMPARISON: Lumbar spine CT 09/26/2017. TECHNIQUE: MRI of the lumbar spine was obtained using routine sequences without contrast. FINDINGS: There is redemonstration of a severe burst type fracture involving L2 with retropulsed osseous fragments extending into the spinal canal causing severe spinal canal stenosis and mass effect on cauda equina nerve roots. Compared to 09/26/2017 the degree of spinal canal stenosis appears mildly progressed. There is diffuse edema throughout the L2 vertebral body extending into the bilateral pedicles with edema also present along the inferior endplate of L1 and proximal aspect of the right L1 pedicle. No new fracture is seen. There is redemonstration of grade 1 anterolisthesis of L4 on L5 with severe disc height loss. Mild edematous endplate changes are present superiorly at L5. Height loss is also present at L3-L4. The distal spinal cord appears normal. The conus medullaris terminates normally at the T12 level. The extraspinal soft tissues are within normal limits. SPINAL LEVELS: L1-L2: Retropulsion of osseous fragments into the spinal canal causing severe spinal canal stenosis and mass effect on cauda equina nerve roots. Moderate to severe bilateral neural foraminal stenosis with mild mass effect on the foraminal segments of the bilateral exiting L1 nerve roots. L2-L3: Mild flattening of the ventral thecal sac related to the L2 fracture. Mild to moderate narrowing of the bilateral neural foramina with abutment of the foraminal L2 nerve root segments. L3-L4: Disc bulging and moderate to severe facet arthropathy. Mild spinal canal stenosis. Mild to moderate bilateral neural foraminal stenosis with abutment of the left more than right foraminal L3 nerve root segments. L4-L5: Grade 1 anterolisthesis with posterior unroofing of the disc, underlying disc bulging, severe facet degeneration, and ligamentum flavum infolding resulting in moderate spinal canal stenosis with mass effect on the descending left L5 nerve root in the subarticular zone. Severe left and moderate right neural foraminal stenosis with mass effect on the foraminal segments of the left more than right L4 nerve roots. L5-S1: Disc bulging and severe bilateral facet arthropathy. No spinal canal stenosis. Mild bilateral neural foraminal stenosis with abutment of the extraforaminal segment of the right L5 nerve root. IMPRESSION: - Redemonstration of burst type compression fracture at L2 with further retropulsion of osseous fragments causing severe spinal canal stenosis and mass effect on cauda equina nerve root segments. - There is multilevel degenerative spondylotic changes without further severe spinal canal stenosis. Mass effect on exiting and descending nerve roots is detailed above. This critical result was discussed with Chucky Sinha on 10/16/2017 5:38 PM, and it was ascertained that the content and urgency of the report was understood at the time of direct communication.
--- NOTE | 2017-10-16 18:35 | Discharge Summary ---
See Addendum Visit Information Visit Dates Admission Date: 10/16/17 Discharge Date: 10/16/17 Hospital Course Course Attending Physician: Jocelyn Sidhu MD Primary Care Physician: Antony CESAR,[facility] Course: Ms. Hoff is a 82 year old woman with medical history of hypertension, chronic bronchitis, palatal polio, diabetes, hyperthyroidism, pulmonary hypertension who presented to ED this morning (10/16/17) lower leg weakness. Patient started experiencing leg pain/weakness in June 2014 when she had a fall. She did not seek medical attention and has been less and less ambulatory since then. No recent falls or trauma. Patient did have a TIA in May 2017 and has been unsteady on her feet since then. Today she presented to [facility] complaining of excruciating right leg pain, worse with movement, lying down made it better, located in her midback radiating down her posterior leg. Motrin, Tramadol provide partial relief. The pain has been severely affecting her functional status. This am she was not able to urinate by her self, and a Han was placed in ED for bladder evacuation. Has not had bowel movement since 10/13/17. No incontinence. Has been seeing ortho and has received steroid shots in back, partially helps. She denied any fevers or chills. Given her presentation and concerns for cord compression, a lumbar spinal MRI was obtained, which read as follows: IMPRESSION: - Redemonstration of burst type compression fracture at L2 with further retropulsion of osseous fragments causing severe spinal canal stenosis and mass effect on cauda equina nerve root segments. - There is multilevel degenerative spondylotic changes without further severe spinal canal stenosis. Mass effect on exiting and descending nerve roots is detailed above. Previous Lumbar spinal CT (09/26/17): IMPRESSION: There has been substantial worsening of the compression fracture of the L2 vertebral body with now 80% vertebral body height loss centrally which represents a substantial progression from 40% height loss on the previous examination from 08/26/2017. There is also worsening retropulsion of the posterior cortex causing AP narrowing of the canal and at least moderate stenosis at the mid body L2 level. Evaluation of the canal and canal contents are however suboptimally assessed on this examination due to inherent limitations of CT without intrathecal contrast. Following results of MRI from today, stat dose of Dexamethasone 10 mg was given. A neurosurgical evaluation was requested and they recommened transferring the patient to higher level of care for possible surgery. Allergies: Coded Allergies: oxycodone (Intermediate, VOMITING 10/16/17) cephalexin (From KEFLEX) (HIVES 10/16/17) Significant Procedures: Other imaging: Hip Xray: IMPRESSION: Mild degenerative changes right hip. Knee Xray: IMPRESSION: Normal-appearing right knee joint prosthesis. Pertinent Lab Results: CBC. H and H - 12.6 and 33.6. Plt count - 468. Unremarkable chemisty panel. Disposition Summary Disposition Principal Diagnosis: Mass effect on cauda equina nerve root segments. Additional Diagnosis: Severe spinal canal stenosis Discharge Disposition: other general hospital Discharge Instructions General Discharge Information Code Status: Full Code Patient's Diet: NPO Patient's Activity: Transfer to higher level of care. Follow-Up Instructions/Appts: Discharge to a higher level of care for possible surgery. Medications at Discharge Discharge Medications: Stop taking the following medications: Glipizide (Glipizide) 5 MG TABLET ORAL DAILY Aspirin (Aspirin*) 81 MG TAB.CHEW ORAL DAILY Qty = 30 Sitagliptin Phos/Metformin HCl (Janumet 50-1,000 MG Tablet) 50 MG-1,000 MG TABLET ORAL TWICE DAILY Continue taking these medications: Methimazole (Methimazole) 5 MG TABLET 1 Tablet ORAL DAILY Instructions: except THURSDAY Comments: Last Taken: 06/18/17 Time: 9:00 AM Fluticasone Propionate (Flovent Hfa) 44 MCG AER.W.ADAP 1 PUFF ORAL DAILY Comments: NOT GIVEN IN HOSPITAL Omeprazole (Omeprazole) 20 MG CAPSULE.DR 1 Capsule ORAL DAILY Losartan Potassium (Cozaar) 25 MG TABLET 1 Tablet ORAL DAILY Atorvastatin Calcium (Atorvastatin Calcium) 10 MG TABLET 1 Tablet ORAL DAILY Cyanocobalamin (Vitamin B-12) (B-12) 1,000 MCG TABLET 1 Tablet ORAL DAILY Cholecalciferol (Vitamin D3) (Vitamin D3) 1,000 UNIT CAPSULE 1 Capsule ORAL DAILY Ibuprofen (Ibuprofen) 400 MG TABLET 1 Tablet ORAL EVERY SIX HOURS NEEDED as needed for pain Qty = 60 Baclofen (Baclofen) 10 MG TABLET 1 Tablet ORAL THREE TIMES A DAY NEEDED as needed for muscle spasm/strain Qty = 30 Tramadol HCl (Ultram) 50 MG TABLET 1 Tablet ORAL EVERY SIX HOURS NEEDED as needed for severe pain Qty = 30 Start taking the following new medications: Dexamethasone Sod Phosphate/Pf (Dexamethasone 10 MG/Ml Vial) 10 MG/ML VIAL 10 Milligram INTRAVEN GIVE ONCE Qty = 1 No Refills Copies To: Antony CESAR,[facility] Attending MD Review Statement Documenting Attending: Radha Salcedo MD Other Findings: Agree with resident's note. 82 yo F diabetic, hypertensive and h/o hyperthyroidism and recent TIA, is here with increasing right leg weakness, inability to ambulate, reduced sensation on right leg, difficulty urinating and intermittent constipation for the past few weeks. Patient recalls a fall 3 months ago but no recent major trauma. Patient underwent MRI which shows L2 compression fracture with features of cauda equina syndrome. Neuro surgery was consulted, Dr. Sterling suggested urgent transfer to tertiary care hospital for need for surgical intervention. I discussed case with Dr. Angel Luis Benito (Neurosurgery) at [place], who is the accepting physician. Patient will be transferred to [facility]. Discussed with patient and patient's at bedside. CMR signed. Patient's aspirin has been held in anticipation of surgery. Also her diabetic oral hypoglycemics have been held in case need for contrast imaging. Please initiate Novolog for diabetes. IV dexamethasone loading dose has been given at [facility]. Above noted.
--- NOTE | 2017-10-16 18:39 | Patient Discharge Instructions ---
Discharge Instructions General Discharge Information You were seen/treated for: Cord compression Special Instructions: Transfer to higher level of care. Diet Continue normal diet: No Recommended Diet: NPO Activity Full Activity/No Limits: No Acute Coronary Syndrome Inclusion Criteria At DC or during hospital stay patient has or had the following: ACS DIAGNOSIS No Discharge Core Measures Meds if any: Prescribed or Continued at Discharge Meds if any: NOT Prescribed or Continued at Discharge Congestive Heart Failure Inclusion Criteria At DC or during hospital stay patient has or had the following: CHF DIAGNOSIS No Discharge Core Measures Meds if any: Prescribed or Continued at Discharge Meds if any: NOT Prescribed or Continued at Discharge Cerebrovascular accident Inclusion Criteria At DC or during hospital stay patient has or had the following: CVA/TIA Diagnosis No Discharge Core Measures Meds if any: Prescribed or Continued at Discharge Meds if any: NOT Prescribed or Continued at Discharge Venous thromboembolism Inclusion Criteria VTE Diagnosis No VTE Type NONE VTE Confirmed by (Test) NONE Discharge Core Measures - Per Current guidelines, there needs to be overlap - treatment for the first 5 days of Warfarin therapy. - If discharged on Warfarin prior to 5 days of - overlap therapy, the patient will need to be - assessed for post discharge needs including - *Post discharge parental anticoagulation - *Warfarin and/or parental anticoagulation education - *Follow up date to check INR post discharge At least 5 days overlap therapy as Inpatient No Meds if any: Prescribed or Continued at Discharge Note: Overlap Therapy is Warfarin and Anticoagulant Meds if any: NOT Prescribed or Continued at Discharge
[2017-10-16] MEDS ORDERED: DEXAMETHAS10 MG/1 ML IV (18:41)
--- NOTE | 2017-10-16 19:02 | Cons- Neurosurgical ---
General Information and HPI Consulting Request Date of Consult: 10/16/17 Requested By: Jocelyn Sidhu MD Reason for Consult: lumbar fracture, cord compression Source of Information: patient, family, old records Exam Limitations: no limitations History of Present Illness: This is a very pleasant 82-year-old female who was admitted to the hospital with worsening low back pain and lower extremity neurologic symptoms. She states that in June she had a fall, fell onto her buttocks, did not have any significant pain or seek any medical treatment at that time. Approximately 2 months later sometime in July, she started getting pain in her lower back that progressed, progressed down to the right leg. She has been experiencing worsening right leg symptoms, worse with movement as well as affecting activities of daily living. Overnight she started having pain and symptoms on the left leg and she woke this morning with significant back pain and right leg pain as well as right leg and left leg weakness. She was unable to get out of bed, and ambulance needed to be called to take her to the hospital due to her severe pain. She denies any bowel or bladder incontinence, she required a Han catheter in the ER due to the fact that she was in too much pain to use the commode or to use the bedpan. She complains of burning sensation to the right anterior thigh over the course of the last several weeks that is worsening, numbness to the right leg and weakness to the right hip and left lower leg. All symptoms significantly worsening since yesterday. Patient had an MRI upon admission to the hospital for lumbar spine which shows a burst compression fracture of L2 with cord compression and neurosurgery, Dr. Sterling, was urgently consulted for further management and treatment. Allergies/Medications Allergies: Coded Allergies: oxycodone (Intermediate, VOMITING 10/16/17) cephalexin (From KEFLEX) (HIVES 10/16/17) Home Med List: Aspirin (Aspirin*) 81 MG TAB.CHEW 81 MG PO DAILY Heart Health Atorvastatin Calcium 10 MG TABLET 1 TAB PO DAILY HYPERCHOLESTEREMIA (Reported ) Baclofen 10 MG TABLET 1 TAB PO TIDPRN PRN muscle spasm/strain Cholecalciferol (Vitamin D3) (Vitamin D3) 1,000 UNIT CAPSULE 1 CAP PO DAILY VITAMIN SUPP (Reported) Cyanocobalamin (Vitamin B-12) (B-12) 1,000 MCG TABLET 1 TAB PO DAILY SUPPLIMENT (Reported) Dexamethasone Sod Phosphate/Pf (Dexamethasone 10 MG/Ml Vial) 10 MG/ML VIAL 10 MG IV ONCE CORD COMPRESSION Fluticasone Propionate (Flovent Hfa) 44 MCG AER.W.ADAP 1 PUFF PO DAILY COPD ( Reported) Glipizide 5 MG TABLET 1 TAB PO DAILY sugar (Reported) Ibuprofen 400 MG TABLET 1 TAB PO Q6P PRN pain Losartan Potassium (Cozaar) 25 MG TABLET 1 TAB PO DAILY HTN (Reported) Methimazole 5 MG TABLET 1 TAB PO DAILY Thyroid (Reported) except THURSDAY Omeprazole 20 MG CAPSULE.DR 1 CAP PO DAILY GERD (Reported) Sitagliptin Phos/Metformin HCl (Janumet 50-1,000 MG Tablet) 50 MG-1,000 MG TABLET 1 TAB PO BID DIABETES (Reported) Tramadol HCl (Ultram) 50 MG TABLET 1 TAB PO Q6P PRN severe pain Past History Medical History Blood Transfusion Hx: No Neurological: NONE EENT: NONE Cardiovascular: hypertension Respiratory: CHRONIC BRONCHITIS 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 Psychosocial History Where Do You Live? Home Services at Home: None Smoking Status: Former Smoker ETOH Use: denies use Illicit Drug Use: denies illicit drug use Functional Ability ADLs Independent: dressing, eating, toileting, bathing. Review of Systems Review of Systems: Review of systems: See HPI, all other systems negative. Constitutional: No chills fever or weight loss HEENT: No visual changes no sore throat no congestion Cardiovascular: No chest pain ,palpitation , orthopnea or ankle swelling Skin: No jaundice no rashes Respiratory: No dyspnea cough sputum or hemoptysis GI: No nausea no vomiting : No dysuria no hematuria Musclulo skeletal: See HPI Neurologic: No numbness no confusion Psych: No stress anxiety or depression,. Heme/endocrine: No bruising no bleeding no polyuria or polydipsia Immunology: No splenectomy or history of AIDS Exam & Diagnostic Data Vital Signs and I&O Vital Signs Date Time Temp Pulse Resp B/P B/P Pulse O2 O2 Flow FiO2 Mean Ox Delivery Rate 10/16 1420 Room Air Room Air 10/16 1401 97.5 87 20 128/74 100 Room Air 10/16 1307 98.0 90 18 143/74 100 Room Air 10/16 1149 98.0 80 18 136/67 99 Room Air 10/16 1056 Room Air Room Air 10/16 1008 98.9 92 15 187/83 99 Room Air Room Air Intake & Output 10/16 0800 10/16 0000 10/15 0810/15 0000 Intake Total 445 Output Total 950 Balance -505 Intake, IV 85 Intake, Oral 360 Output, Urine 950 Patient 148 lb Weight Weight Bed scale Measurement Method Physical Exam: Well-developed well-nourished no apparent distress. Very pleasant 82-year-old female, looks younger than stated age HEENT: Atraumatic, extraocular motion intact Neck: Supple, no lymphadenopathy Respiratory: No respiratory distress Neuro: Alert and oriented x3 Psych: Mood affect normal, normal memory normal judgment. Skin: Warm and dry, no rash on exposed skin Tenderness of the mid lumbar spine region, no evidence of trauma. Very limited range of motion on exam due to pain. On exam patient has numbness to the entirety of the right anterior thigh, weakness with right hip flexion 4 out of 5 strength. On the left lower leg there is EHL weakness 4 out of 5 in weakness in ankle dorsiflexion 4 out of 5. Sensation is normal in the left lower extremity. Patient has decreased rectal tone on exam Last 24 Hours of Labs: Laboratory Tests 10/16 10/16 1053 1034 Chemistry Sodium (137 - 145 mmol/L) 138 Potassium (3.5 - 5.1 mmol/L) 3.9 Chloride (98 - 107 mmol/L) 99 Carbon Dioxide (22 - 30 mmol/L) 26 Anion Gap (5 - 16) 13 BUN (7 - 17 mg/dL) 10 Creatinine (0.5 - 1.0 mg/dL) 0.8 Estimated GFR (>60 ml/min) > 60 BUN/Creatinine Ratio (7 - 25 %) 12.5 Glucose (65 - 99 mg/dL) 110 H Calcium (8.4 - 10.2 mg/dL) 9.4 Total Bilirubin (0.2 - 1.3 mg/dL) 0.9 AST (14 - 36 U/L) 15 ALT (9 - 52 U/L) 15 Alkaline Phosphatase (<127 U/L) 65 Troponin I (< 0.11 ng/ml) < 0.01 Total Protein (6.3 - 8.2 g/dL) 6.6 Albumin (3.5 - 5.0 g/dL) 4.0 Globulin (1.9 - 4.2 gm/dL) 2.6 Albumin/Globulin Ratio (1.1 - 2.2 %) 1.5 TSH (0.270 - 4.200 uIU/mL) 2.720 Free T4 (0.85 - 1.93 ng/dL) 1.63 Hematology CBC w Diff NO MAN DIFF REQ WBC (4.8 - 10.8 /CUMM) 10.7 RBC (4.20 - 5.40 /CUMM) 4.66 Hgb (12.0 - 16.0 G/DL) 12.6 Hct (37 - 47 %) 37.7 MCV (81.0 - 99.0 FL) 80.8 L MCH (27.0 - 31.0 PG) 27.1 MCHC (33.0 - 37.0 G/DL) 33.6 RDW (11.5 - 14.5 %) 16.3 H Plt Count (130 - 400 /CUMM) 468 H MPV (7.4 - 10.4 FL) 7.5 Gran % (42.2 - 75.2 %) 79.8 H Lymphocytes % (20.5 - 51.1 %) 13.2 L Monocytes % (1.7 - 9.3 %) 5.9 Eosinophils % (0 - 5 %) 0.9 Basophils % (0.0 - 2.0 %) 0.2 Absolute Granulocytes (1.4 - 6.5 /CUMM) 8.5 H Absolute Lymphocytes (1.2 - 3.4 /CUMM) 1.4 Absolute Monocytes (0.10 - 0.60 /CUMM) 0.6 Absolute Eosinophils (0.0 - 0.7 /CUMM) 0.1 Absolute Basophils (0.0 - 0.2 /CUMM) 0 Urines Urine Color (YEL,AMB,STR) YEL Urine Clarity (CLEAR) CLEAR Urine pH (5.0 - 8.0) 6.0 Ur Specific [place] (1.001 - 1.035) 1.010 Urine Protein (NEG,<30 MG/DL) NEG Urine Ketones (NEG) NEG Urine Nitrite (NEG) NEG Urine Bilirubin (NEG) NEG Urine Urobilinogen (0.1 - 1.0 EU/dl) 0.2 Ur Leukocyte Esterase (NEG) NEG Ur Microscopic EXAM NOT REQUIRED Urine Hemoglobin (NEG) NEG Urine Glucose (N MG/DL) NEG Imaging Results: PATIENT: KEAGAN DODSON PRESENT AGE: 82 PATIENT ACCOUNT NO: [id number] : 37 LOCATION: [facility] ORDERING PHYSICIAN: Chucky Sinha MD SERVICE DATE: 10/16/17- EXAM TYPE: MRI - MRI-LUMBAR SPINE EXAMINATION: MR LUMBAR SPINE WITHOUT CONTRAST CLINICAL INFORMATION: Follow-up compression fractures from CT 09/26/2017. 2 cyst candidate C4 vertebral augmentation. Rule out cord compression. Inability to ambulate and urinary. COMPARISON: Lumbar spine CT 09/26/2017. TECHNIQUE: MRI of the lumbar spine was obtained using routine sequences without contrast. FINDINGS: There is redemonstration of a severe burst type fracture involving L2 with retropulsed osseous fragments extending into the spinal canal causing severe spinal canal stenosis and mass effect on cauda equina nerve roots. Compared to 09/26/2017 the degree of spinal canal stenosis appears mildly progressed. There is diffuse edema throughout the L2 vertebral body extending into the bilateral pedicles with edema also present along the inferior endplate of L1 and proximal aspect of the right L1 pedicle. No new fracture is seen. There is redemonstration of grade 1 anterolisthesis of L4 on L5 with severe disc height loss. Mild edematous endplate changes are present superiorly at L5. Height loss is also present at L3-L4. The distal spinal cord appears normal. The conus medullaris terminates normally at the T12 level. The extraspinal soft tissues are within normal limits. SPINAL LEVELS: L1-L2: Retropulsion of osseous fragments into the spinal canal causing severe spinal canal stenosis and mass effect on cauda equina nerve roots. Moderate to severe bilateral neural foraminal stenosis with mild mass effect on the foraminal segments of the bilateral exiting L1 nerve roots. L2-L3: Mild flattening of the ventral thecal sac related to the L2 fracture. Mild to moderate narrowing of the bilateral neural foramina with abutment of the foraminal L2 nerve root segments. L3-L4: Disc bulging and moderate to severe facet arthropathy. Mild spinal canal stenosis. Mild to moderate bilateral neural foraminal stenosis with abutment of the left more than right foraminal L3 nerve root segments. L4-L5: Grade 1 anterolisthesis with posterior unroofing of the disc, underlying disc bulging, severe facet degeneration, and ligamentum flavum infolding resulting in moderate spinal canal stenosis with mass effect on the descending left L5 nerve root in the subarticular zone. Severe left and moderate right neural foraminal stenosis with mass effect on the foraminal segments of the left more than right L4 nerve roots. L5-S1: Disc bulging and severe bilateral facet arthropathy. No spinal canal stenosis. Mild bilateral neural foraminal stenosis with abutment of the extraforaminal segment of the right L5 nerve root. IMPRESSION: - Redemonstration of burst type compression fracture at L2 with further retropulsion of osseous fragments causing severe spinal canal stenosis and mass effect on cauda equina nerve root segments. - There is multilevel degenerative spondylotic changes without further severe spinal canal stenosis. Mass effect on exiting and descending nerve roots is detailed above. This critical result was discussed with Chucky Sinha on 10/16/2017 5:38 PM, and it was ascertained that the content and urgency of the report was understood at the time of direct communication. 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 On exam she has bilateral lower extremity symptoms with weakness in the right leg hip flexor, numbness and burning sensation in the right anterior thigh as well as weakness in the left ankle dorsiflexion and EHL. Patient also has decreased rectal tone. Case was discussed with Dr. Sterling who reviewed the MRI findings as well and recommends an urgent transfer to a tertiary facility for potential urgent neurosurgical intervention. There is also concern that this is a pathologic fracture due to the prolonged nature of symptoms and MRI findings. The case was discussed with the attending medical doctor, Dr. Castellon. Discussed with patient and family at the bedside, patient's and sister, they understand and agree with plan. Copies To: Asher CESAR,Luke Roach Acknowledgment - Thank you for your consult request.
[2017-10-16 20:18] VITALS: BP 128/74
[2017-10-16 21:16] VITALS: BP 162/100
== END 2017-10-16 22:03 | disposition short-term general hospital (02) | DRG 544 ==
LOC: ERH 09:59 → ERHI 11:36 → ENRESERV 12:07 → ENTRNSPT 13:09 → EDTRNSPT 13:13 → EDTRNSPTSTS 13:13 → 2NB 13:19 → CMPTRNSPT 13:46 → 2NB 19:47
PROVIDERS: Physician Assistant Medical
DX: M80.88XA Other osteoporosis with current pathological fracture, vertebra(e), initial encounter for fracture (principal); I10 Essential (primary) hypertension; Z86.12 Personal history of poliomyelitis; E03.9 Hypothyroidism, unspecified; I27.20 Pulmonary hypertension, unspecified; M54.9 Dorsalgia, unspecified; G89.29 Other chronic pain; Z96.651 Presence of right artificial knee joint; M16.11 Unilateral primary osteoarthritis, right hip; M48.061 Spinal stenosis, lumbar region without neurogenic claudication; Z86.73 Personal history of transient ischemic attack (TIA), and cerebral infarction without residual deficits; E05.90 Thyrotoxicosis, unspecified without thyrotoxic crisis or storm; E11.9 Type 2 diabetes mellitus without complications; J44.9 Chronic obstructive pulmonary disease, unspecified; K21.9 Gastro-esophageal reflux disease without esophagitis; Z79.84 Long term (current) use of oral hypoglycemic drugs
CPT/HCPCS: 2NBSP; 72148; 73502-RT; 73562-RT; 81003; 87086; 93005; 93010; 96374; J0131; J1100; J3490

== ENCOUNTER 2018-02-20 11:52 | Emergency (ER) | payer OTHER, MEDICARE ==
[~2018-02-20] VITALS: Ht 162.6 cm; Wt 66.2 kg
[~2018-02-20 11:52] MED LIST changes: +CALCIUM600 M3 PO; +DEXAMETHAS10 MG/1 ML IV; +FLONASE ALLERG9.9 ML NASB; +IBUPROFEN600 M1 PO; +MIRALAX119 GM PO
[2018-02-20 11:56] VITALS: BP 164/72
[2018-02-20 12:34] LABS: ABSOLUTE BASOPHIL COUNT 0 /CUMM (0.0-0.2); ABSOLUTE EOSINOPHIL COUNT 0.1 /CUMM (0.0-0.7); ABSOLUTE GRANULOCYTE CT 4.9 /CUMM (1.4-6.5); ABSOLUTE LYMPH COUNT 1.2 /CUMM (1.2-3.4); ABSOLUTE MONOCYTE COUNT 0.4 /CUMM (0.10-0.60); BASOPHIL % 0.3 % (0.0-2.0); EOSINOPHIL % 1.9 % (0-5); GRANULOCYTE % 73.6 % (42.2-75.2); HEMATOCRIT 29.5 % (37-47); MEAN CORPUSCULAR HGB CONC 33.7 G/DL (33.0-37.0); MEAN CORPUSCULAR VOLUME 83.1 FL (81.0-99.0); MEAN PLATELET VOLUME 7.5 FL (7.4-10.4); PLATELET COUNT 426 /CUMM (130-400); RBC DISTRIBUTION WIDTH 15.2 % (11.5-14.5); RED BLOOD CELL CT 3.55 /CUMM (4.20-5.40); WHITE BLOOD CELL COUNT 6.6 /CUMM (4.8-10.8)
--- NOTE | 2018-02-20 14:31 | ED GENERAL ADULT ---
History of Present Illness General Chief Complaint: Nausea, Vomiting, Diarrhea Stated Complaint: DIARRHEA Source: patient, family, old records Exam Limitations: no limitations Vital Signs & Intake/Output Vital Signs & Intake/Output Vital Signs Date Time Temp Pulse Resp B/P B/P Pulse O2 O2 Flow FiO2 Mean Ox Delivery Rate 02/20 1156 98.1 88 18 164/72 96 Room Air Allergies Coded Allergies: oxycodone (Intermediate, VOMITING 10/16/17) cephalexin (From KEFLEX) (HIVES 10/16/17) Reconcile Medications Aspirin (Aspirin*) 81 MG TAB.CHEW 81 MG PO DAILY [facility] Health Atorvastatin Calcium 10 MG TABLET 1 TAB PO DAILY HYPERCHOLESTEREMIA (Reported ) Baclofen 10 MG TABLET 1 TAB PO TIDPRN PRN muscle spasm/strain Calcium (Elemental-Fr Calcarb) (Calcium) 600 MG CALCIUM (1,500 MG) TABLET 2 TAB PO DAILY SUPPLEMENT (Reported) Cholecalciferol (Vitamin D3) (Vitamin D3) 1,000 UNIT CAPSULE 1 CAP PO DAILY VITAMIN SUPP (Reported) Cyanocobalamin (Vitamin B-12) (B-12) 1,000 MCG TABLET 1 TAB PO WEDSUN SUPPLIMENT (Reported) Fluticasone Propionate (Flonase Allergy Relief) 50 MCG/ACTUATION SPRAY.SUSP 1 SPRAY NASB AD PRN ALLERGIES/NASAL CONGESTION (Reported) Glipizide 5 MG TABLET 1 TAB PO DAILY sugar (Reported) Ibuprofen 600 MG TABLET 1 TAB PO Q6P PRN pain with food Losartan Potassium (Cozaar) 25 MG TABLET 1 TAB PO DAILY HTN (Reported) Methimazole 5 MG TABLET 1 TAB PO MONTHRUSAT Thyroid (Reported) Omeprazole 20 MG CAPSULE.DR 1 CAP PO MONTHRUFRI GERD (Reported) Polyethylene Glycol 3350 (Miralax) 17 GRAM/DOSE POWDER 17 GM PO BID CONSTIPATION mix with water, juice, soda, coffee or tea Polyethylene Glycol 3350 (Miralax) 17 GRAM/DOSE POWDER 17 GM PO BID constipation mix with water, juice, soda, coffee or tea Sitagliptin Phos/Metformin HCl (Janumet 50-1,000 MG Tablet) 50 MG-1,000 MG TABLET 1 TAB PO BID DIABETES (Reported) Tramadol HCl (Ultram) 50 MG TABLET 1-2 TAB PO Q6P PRN severe pain Triage Note: 82 YEAR OLD FEMALE WASS SEEN HERE 1 WEEK AGO DUE TO CONSTIPATION,WAS GIVEN SOAP SUDS ENEMA, STATES THAT SHE KEEPS HAVING ABOUT 3 EPISODES OF DIARHEA A DAY, WAS STARTED ON MIRALAX LAST TOOK 2 DAYS AGO, STATES THAT SHE GETS SOME CRAMPING, HAS NOT HAD A FORMED BM SINCE LAST WEEK Triage Nurses Notes Reviewed? 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 Patient was seen in this emergency department for constipation, given enema and MiraLAX, short course. Following this, patient developed loose stools. She states that she is having approximately 3/day. They are nonbloody. No pain upon evaluation. She states that she did have some cramping lower abdominal pain earlier. She denies any nausea or vomiting. She has had no fever, chills, change in appetite. She last took the MiraLAX on and denies any other change in medication. She has had no recent antibiotics, recent hospitalization or sick contacts or suspicious food/travel. (Guille Colon MD) Past History Travel History Traveled to [place] past 21 day No Medical History Any Pertinent Medical History? 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 Hx Contributory? No (Guille Colon MD) Review of Systems Review of Systems Constitutional: Reports: no symptoms. Genitourinary: Reports: see HPI. All Other Systems: Reviewed and Negative (Guille Colon MD) Physical Exam Physical Exam General Appearance: well developed/nourished, no apparent distress, comfortable Head: atraumatic, normal appearance Eyes: Bilateral: normal appearance, PERRL, EOMI. Ears, Nose, Throat: normal ENT inspection, hearing grossly normal Neck: normal inspection, supple, full range of motion Respiratory: normal breath sounds, no respiratory distress, lungs clear Cardiovascular: regular rate/rhythm, normal peripheral pulses Gastrointestinal: normal bowel sounds, soft, non-tender, no organomegaly Rectal: deferred Back: normal inspection, normal range of motion Extremities: normal inspection, normal capillary refill, normal range of motion, no edema Neurologic/Psych: no motor/sensory deficits, awake, alert, oriented x 3, normal gait Skin: intact, warm/dry Comments: Well-appearing elderly female, no acute distress. Asymmetric soft palate secondary to remote polio infection. Soft, nontender abdomen. Core Measures ACS in differential dx? No CVA/TIA Diagnosis: No Sepsis Present: No Sepsis Focused Exam Completed? No (Isaiah CESAR,Guille) Progress Differential Diagnoses I considered the following diagnoses in my evaluation of the patient: Clinically suspect therapeutic reaction to enema and MiraLAX in patient with previous constipation. Low suspicion for acute metabolic derangement, colitis, gastroenteritis, occult infection, diverticulitis or diverticulosis. Plan of Care: Orders Procedure Date/time Status LACTIC ACID 02/20 1455 Active CULTURE,STOOL 02/20 115 Active C.DIFFICILE 02/20 115 Active LACTIC ACID 02/20 115 Complete COMPREHENSIVE METABOLIC PANEL 02/20 115 Complete CBC WITHOUT DIFFERENTIAL 02/20 115 Complete Laboratory Tests 02/20/18 1215: Anion Gap 9, Estimated GFR > 60, BUN/Creatinine Ratio 17.8, Glucose 130 H, Lactic Acid 1.4, Calcium 9.5, Total Bilirubin 0.5, AST 17, ALT 15, Alkaline Phosphatase 63, Total Protein 6.9, Albumin 4.1, Globulin 2.8, Albumin/Globulin Ratio 1.5, CBC w Diff NO MAN DIFF REQ, RBC 3.55 L, MCV 83.1, MCH 28.0, MCHC 33.7, RDW 15.2 H, MPV 7.5, Gran % 73.6, Lymphocytes % 17.9 L, Monocytes % 6.3, Eosinophils % 1.9, Basophils % 0.3, Absolute Granulocytes 4.9, Absolute Lymphocytes 1.2, Absolute Monocytes 0.4, Absolute Eosinophils 0.1, Absolute Basophils 0 Microbiology 02/20 115 STOOL: Clostridium difficile Toxin A & B - ORD 02/20 1155 STOOL: Stool Culture - ORD Patient undergoes basic labs. Noted to be mildly anemic, although near baseline. Mild thrombocytosis is noted and of unclear significance. No metabolic derangements. Patient well-appearing on reassessment. She is advised to eat a high-fiber diet and return for planned GI follow-up in February. Return precautions are provided and she is discharged home with her . Initial ED EKG: none (Isaiah CESAR,Guille) Departure Departure Time of Disposition: 1430 Disposition: HOME OR SELF CARE Condition: Stable Clinical Impression Primary Impression: Loose stools Referrals: Melissa Hardy MD (PCP/Family) Additional Instructions: Thank you for coming to [facility] today. As we discussed, it is likely that your loose stools are due to the MiraLAX which she had been taking. Now that you have stopped, I expect your stools to normalize. It may be helpful to take extra fiber and drink plenty of water for the next several days. As we discussed, it is important a follow-up with the GI doctor. Return to the hospital if you develop any new or worsening symptoms. Thank you, Dr. Colon. Departure Forms: Customer Survey General Discharge Information (Guille Colon MD) Resident Co-Sign Statement Statement: ED Attending supervision documentation- [] I saw and evaluated the patient. I have also reviewed all the pertinent lab results and diagnostic results. I agree with the findings and the plan of care as documented in the Resident's documentation. [X] I have reviewed the ED Record and agree with the Resident's documentation. [] Additions or exceptions (if any) to the Resident's note and plan are summarized below: [] (Daniel CESAR,Danny Duarte) Critical Care Note Critical Care Note Critical Care Time: non-applicable (Guille Colon MD)
== END 2018-02-20 14:53 ==
LOC: ERH 11:52
PROVIDERS: Physician Assistant Medical
DX: R19.7 Diarrhea, unspecified (principal); R10.30 Lower abdominal pain, unspecified; I10 Essential (primary) hypertension; E11.9 Type 2 diabetes mellitus without complications; Z79.82 Long term (current) use of aspirin; Z79.84 Long term (current) use of oral hypoglycemic drugs
CPT/HCPCS: 87015; 87045; 87899; 87899-59